=== PATIENT | male | born 1965 | race Caucasian/White ===

== ENCOUNTER 2017-09-22 02:49 | Emergency (ER) | payer OTHER ==
[2017-09-22 03:15] VITALS: BMI 17.9
--- NOTE | 2017-09-22 03:20 | PDOC ---
History of Present Illness - General History Source: Patient, Old Records Exam Limitations: No Limitations - History of Present Illness Initial Comments: 09/22/17 03:29 The patient is a 52 year old male with a past medical history of rectal cancer and small bowel obstruction who presents to the emergency department after nearly losing consciousness just prior to presenting. The patient states that at 12 pm yesterday he was at rest watching TV when he began to experience mid sternal chest discomfort radiating to his back and associated with dizziness and shortness of breath. He notes that he was recently diagnosed with an upper respiratory infection but he is unsure of the medications he was prescribed. He denies any sick contact or recent travels. He denies any current chest pain. Shortness of breath, dizziness, or other symptoms <Leobardo Padilla - Last Filed: 09/22/17 03:29> - General History Source: Patient <Kehinde Urrutia - Last Filed: 09/22/17 05:03> - General Chief Complaint: Chest Pain Stated Complaint: CHEST PAIN Time Seen by Provider: 09/22/17 03:04 Past History <Leobardo Padilla - Last Filed: 09/22/17 03:29> - Past Medical History Cancer: Yes (S/P Rectal CA) GI Disorders: Yes (SBO) - Surgical History Abdominal Surgery: Yes (Colon Resection; Chemo & Radiation) Appendectomy: Yes GI Surgery: Yes (S/P RECTAL CA) - Immunization History Immunization Up to Date: Yes - Suicide/Smoking/Psychosocial Hx Smoking History: Never smoked Have you smoked in the past 12 months: No Information on smoking cessation initiated: No Hx Alcohol Use: No Drug/Substance Use Hx: No Substance Use Type: None Hx Substance Use Treatment: No <Kehinde Urrutia - Last Filed: 09/22/17 05:03> - Past Medical History Allergies/Adverse Reactions: Allergies Allergy/AdvReac Type Severity Reaction Status Date / Time No Known Allergies Allergy Verified 09/22/17 03:13 Home Medications: Ambulatory Orders Omeprazole [Prilosec] 20 mg PO DAILY 02/18/16 Review of Systems - Review of Systems Able to Perform ROS?: Yes Comments:: CONSTITUTIONAL: (+) Dizziness Absent: fever, no chills, no fatigue EYES: Absent: visual changes ENT: Absent: ear pain, no sore throat CARDIOVASCULAR: (+) Chest discomfort Absent: chest pain, no palpitations RESPIRATORY: (+) SOB Absent: cough GI: Absent: abdominal pain, no nausea, no vomiting, no constipation, no diarrhea GENITOURINARY: Absent: dysuria, no frequency, no hematuria MUSCULOSKELETAL: Absent: back pain, no arthralgia, no myalgia SKIN: Absent: rash <Leobardo Padilla - Last Filed: 09/22/17 03:29> *Physical Exam - Vital Signs Last Vital Signs Temp Pulse Resp BP Pulse Ox 98.3 F 74 18 127/87 99 09/22/17 03:10 09/22/17 03:10 09/22/17 03:10 09/22/17 03:10 09/22/17 03:10 - Physical Exam Comments: GENERAL: Well-appearing, well-nourished. No apparent distress. HEENT: Normocephalic, atraumatic. PERRL, EOM intact. CARDIOVASCULAR: Normal S1, S2. Regular rate and rhythm. PULMONARY: Clear to auscultation bilaterally. ABDOMEN: Soft, non-distended, non-tender. EXTREMITIES: Normal ROM in all four extremities. No gross deformities. SKIN: Warm, dry. No rash NEUROLOGICAL: No focal neurological deficits. <Leobardo Padilla - Last Filed: 09/22/17 03:29> - Vital Signs Last Vital Signs Temp Pulse Resp BP Pulse Ox 98.3 F 74 18 127/87 99 09/22/17 03:10 09/22/17 03:10 09/22/17 03:10 09/22/17 03:10 09/22/17 03:10 <Kehinde Urrutia - Last Filed: 09/22/17 05:03> Heart Score/ECG Review - ECG Impressions Comment:: 09/22/17 03:30 ECG: Normal sinus rhythm Normal ECG <Leobardo Padilla - Last Filed: 09/22/17 03:29> ED Treatment Course - LABORATORY CBC & Chemistry Diagram: 09/22/17 03:33 09/22/17 03:35 <Kehinde Urrutia - Last Filed: 09/22/17 05:03> Medical Decision Making - Medical Decision Making 09/22/17 05:01 Dr. Urrutia: The scribe's documentation has been prepared under my direction and personally reviewed by me in its entirery. I confirm that the note above accurately reflects all work, treatment, procedures, and medical decision making performed by me. Pt feels better since he presented to the department. Pt labs, EKG, and chest xray are normal. Will discharge pt. <Kehinde Urrutia - Last Filed: 09/22/17 05:03> *DC/Admit/Observation/Transfer - Attestations Scribe Attestion: 09/22/17 03:30 Documentation prepared by Leobardo Padilla, acting as biomedical service engineer for Kehinde Urrutia DO. <Leobardo Padilla - Last Filed: 09/22/17 03:29> - Discharge Dispostion Admit: No <Kehinde Urrutia - Last Filed: 09/22/17 05:03> Diagnosis at time of Disposition: Chest pain - Discharge Dispostion Disposition: HOME Condition at time of disposition: Stable - Referrals Referrals: Ailyn Lyons MD [Staff Physician] - Da Gibbs MD [Staff Physician] - - Patient Instructions Printed Discharge Instructions: DI for Chest Pain Additional Instructions: Please follow up with the doctors provided to you here in the department Print Language: TURKISH
[2017-09-22 03:55] LABS: BASO % 0.6 % (0-2.0); EOS # 0.2 # (0-4.5); EOS % 4.8 % (0-4.5); MCH 29.6 pg (25.7-33.7); MCHC 33.6 g/dl (32.0-35.9); MEAN CELL VOLUME 88.1 fl (80-96); MEAN PLT VOLUME 8.1 fl (7.5-11.1); MONO # 0.4 # (3.8-10.2); NEUT # 2.5 # (42.8-82.8); NEUT % 59.7 % (42.8-82.8); PLATELET COUNT 189 K/MM3 (134-434); RDW 12.6 % (11.9-15.9); WHITE BLOOD COUNT 4.1 K/mm3 (4.0-10.0)
[2017-09-22 04:29] LABS: ALBUMIN 3.7 g/dl (3.4-5.0); ANION GAP 8 (8-16); BILIRUBIN,TOTAL 0.3 mg/dL (0.2-1.0); CALCIUM 8.5 mg/dL (8.5-10.1); CO2 27 mmol/L (21-32); CREATININE 0.8 mg/dL (0.7-1.3); GLUCOSE,RANDOM 122 mg/dL (74-106); MAGNESIUM 2.3 mg/dL (1.8-2.4); SGOT/AST 27 U/L (15-37); SGPT/ALT 47 U/L (12-78); TOT PROT 6.9 g/dl (6.4-8.2)
[2017-09-22 04:31] LABS: ALK PHOS 66 U/L (45-117); CPK 149 IU/L (39-308); TROPONIN I < 0.02 ng/ml (0.00-0.05)
[2017-09-22 05:15] VITALS: BP 127/86; PULSE 72; TEMP 98
--- NOTE | 2017-09-22 13:47 | EKG ---
Test Reason : Blood Pressure : / mmHG Vent. Rate : 076 BPM Atrial Rate : 076 BPM P-R Int : 148 ms QRS Dur : 092 ms QT Int : 380 ms P-R-T Axes : 067 036 033 degrees QTc Int : 427 ms POOR DATA QUALITY, INTERPRETATION MAY BE ADVERSELY AFFECTED NORMAL SINUS RHYTHM NORMAL ECG WHEN COMPARED WITH ECG OF 18-FEB-2016 07:42, NO SIGNIFICANT CHANGE WAS FOUND Confirmed by SEEMA MANDEL MD ([id number]) on 09/22/2017 1:47:25 PM Referred By: Confirmed By:SEEMA MANDEL MD
== END 2017-09-22 05:17 | disposition home or self-care (01) ==
LOC: JER 02:49 → SUPCPDRO 02:49 → JER 05:17
DX: R07.89 Other chest pain (principal); Z85.048 Personal history of other malignant neoplasm of rectum, rectosigmoid junction, and anus
CPT/HCPCS: 36415; 71010-TC; 80053; 82550; 83735; 84484; 85025; 93005; 93010; 99283-25

== ENCOUNTER 2018-03-16 21:26 | Emergency (ER) | payer OTHER ==
[2018-03-16] MEDS ORDERED: DIPHTH,PERTUSS(ACELL),TET 0.5 ML DISP.SYRIN IM ONE (21:30)
--- NOTE | 2018-03-16 21:30 | PDOC ---
Rapid Medical Evaluation Time Seen by Provider: 03/16/18 21:29 Medical Evaluation: Allergies Allergy/AdvReac Type Severity Reaction Status Date / Time No Known Allergies Allergy Verified 09/22/17 03:13 03/16/18 21:29 I have performed a brief in-person evaluation of this patient. The patient presents with a chief complaint of: right middle finger pain s/p cat bite Pertinent physical exam findings: erythema and swelling to right 3rd digit DIP I have ordered the following: td The patient will proceed to the ED for further evaluation. Discharge Disposition - Diagnosis Cat bite - Referrals - Patient Instructions - Post Discharge Activity
[2018-03-16 21:32] VITALS: BP 107/72; PULSE 69; TEMP 97.8; BMI 21.8
[2018-03-16] MEDS ORDERED: RABIES IMMUNE GLOBULIN 300 UNITS/2 ML VIAL IM ONE (21:51)
[2018-03-16] MEDS ORDERED: RABIES VACCINE (PCEC)/PF 2.5 UNIT/VIAL IM ONE (21:51)
--- NOTE | 2018-03-16 22:13 | PDOC ---
History of Present Illness - General Chief Complaint: Bite Stated Complaint: WOUND Time Seen by Provider: 03/16/18 21:29 History Source: Patient Exam Limitations: No Limitations - History of Present Illness Initial Comments: 03/16/18 22:09 This is a 53-year-old man without significant past medical history presents emergency departments with right middle finger pain and swelling starting this afternoon after being bitten by a stray cat. 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 He denies any fevers, chills, headaches, dizziness. Past History - Past Medical History Allergies/Adverse Reactions: Allergies Allergy/AdvReac Type Severity Reaction Status Date / Time No Known Allergies Allergy Verified 03/16/18 21:30 Home Medications: Ambulatory Orders Omeprazole [Prilosec] 20 mg PO DAILY 02/18/16 Amox-Tr/K Cl [Augmentin - 500Mg Tablet] 1 tab PO BID #14 tab 03/17/18 Cancer: Yes (S/P Rectal CA) COPD: No GI Disorders: Yes (SBO) - Surgical History Abdominal Surgery: Yes (Colon Resection; Chemo & Radiation) Appendectomy: Yes GI Surgery: Yes (S/P RECTAL CA) - Immunization History Immunization Up to Date: Yes - Suicide/Smoking/Psychosocial Hx Smoking History: Never smoked Have you smoked in the past 12 months: No Hx Alcohol Use: No Drug/Substance Use Hx: No Substance Use Type: None Hx Substance Use Treatment: No Review of Systems - Review of Systems Able to Perform ROS?: Yes Is the patient limited Albanian proficient: No Constitutional: No: Symptoms Reported HEENTM: No: Symptoms Reported Respiratory: No: Symptoms reported Cardiac (ROS): No: Symptoms Reported ABD/GI: No: Symptoms Reported : No: Symptoms Reported Musculoskeletal: No: Symptoms Reported Integumentary: Yes: See HPI Neurological: No: Symptoms reported *Physical Exam - Vital Signs Last Vital Signs Temp Pulse Resp BP Pulse Ox 97.8 F 69 18 107/72 98 03/16/18 21:30 03/16/18 21:30 03/16/18 21:30 03/16/18 21:30 03/16/18 21:30 - Physical Exam General Appearance: Yes: Appropriately Dressed. No: Apparent Distress Neck: positive: Trachea midline, Supple Respiratory/Chest: positive: Lungs Clear, Normal Breath Sounds. negative: Respiratory Distress, Accessory Muscle Use Cardiovascular: positive: Regular Rhythm, Regular Rate. negative: Murmur Gastrointestinal/Abdominal: positive: Normal Bowel Sounds, Soft. negative: Tender Integumentary: positive: Other (Swelling and erythema noted to the DIP of the right third finger.) Neurologic: positive: Alert, Normal Response Medical Decision Making - Medical Decision Making 03/16/18 22:11 A/P: 53-year-old male with infection to right proximal phalangeal joint of the third digit status post cat bite Erythema to DIP of the third digit of the right hand Full sensation noted distal to injury Full range of motion noted Given patient was bitten by a stray cat I will prophylactically treat the patient for rabies with a tetanus shot, rabies vaccine and rabies Ig. 03/17/18 01:06 Patient tolerated injections well. 1 mL of rabies Ig injected surrounding initial bite. Unable to infuse more given this was a bite to the finger. Remainder of rabies Ig was giving IM into separates injections to each gluteus. Rabies vaccine injected into the right vastus lateralis. Discharge instructions given and patient verbalized understanding of need for return for continued treatment with rabies vaccines. *DC/Admit/Observation/Transfer Diagnosis at time of Disposition: Cat bite Qualifiers: Encounter type: initial encounter Qualified Code(s): W55.01XA - Bitten by cat, initial encounter - Discharge Dispostion Disposition: HOME Condition at time of disposition: Stable - Prescriptions Prescriptions: Amox-Tr/K Cl [Augmentin - 500Mg Tablet] 1 tab PO BID #14 tab - Referrals Referrals: Niranjan Lynn MD [Primary Care Provider] - - Patient Instructions Additional Instructions: You have been given rabies immunoglobulin around the bites and also into the muscles. You've been given a rabies vaccine anterior muscle. You need to return in 3 days , 7 days and 14 days for additional doses of the rabies vaccine. You have been given a prescription for Augmentin. He was take one tablet twice a day for the next 1 week-even if you feel better. Return to emergency department for any fevers, chills, redness spreading up her finger, inability to move her finger or any other concerns. - Post Discharge Activity
--- NOTE | 2018-03-17 00:14 | PDOC ---
*Physical Exam - Vital Signs Last Vital Signs Temp Pulse Resp BP Pulse Ox 97.8 F 69 18 107/72 98 03/16/18 21:30 03/16/18 21:30 03/16/18 21:30 03/16/18 21:30 03/16/18 21:30 Medical Decision Making - Medical Decision Making 03/17/18 00:14 Mr Booker is a 53 yo M s/p cat bite by a stray cat Pt seen by Midlevel Provider under my direct supervision Abx Rabies Close follow up as wound is high risk for infection I agree with plan as outlined by Midlevel Provider 03/17/18 00:15 *DC/Admit/Observation/Transfer Diagnosis at time of Disposition: Cat bite - Referrals Referrals: Niranjan Lynn MD [Primary Care Provider] - - Patient Instructions - Post Discharge Activity
[2018-03-17] MEDS ORDERED: RABIES IMMUNE GLOBULIN 300 UNITS/2 ML VIAL ONE ×2 (00:21→00:32)
== END 2018-03-17 02:29 | disposition home or self-care (01) ==
LOC: JER 21:26 → JERFT 21:26 → JER 03-17 02:29
PROC: 3E0234Z Introduction of Serum, Toxoid and Vaccine into Muscle, Percutaneous Approach (ICD-10-PCS; principal; 2018-03-16)
PROC: 3E0234Z Introduction of Serum, Toxoid and Vaccine into Muscle, Percutaneous Approach (ICD-10-PCS; 2018-03-16)
PROC: 3E0234Z Introduction of Serum, Toxoid and Vaccine into Muscle, Percutaneous Approach (ICD-10-PCS; 2018-03-16)
DX: S60.472A Other superficial bite of right middle finger, initial encounter (principal); W55.01XA Bitten by cat, initial encounter; Y93.K9 Activity, other involving animal care; Y92.89 Other specified places as the place of occurrence of the external cause; Y99.8 Other external cause status
CPT/HCPCS: 90375; 90675; 90715; 99281-25

== ENCOUNTER 2018-03-28 14:10 | Emergency (ER) | payer OTHER ==
[2018-03-28 14:16] VITALS: BP 115/51; PULSE 59; TEMP 97.6; BMI 21.9
[2018-03-28] MEDS ORDERED: RABIES VACCINE (PCEC)/PF 2.5 UNIT/VIAL IM ONE (14:39)
--- NOTE | 2018-03-28 15:05 | PDOC ---
History of Present Illness - General Chief Complaint: Revisit,Rabies Injection Stated Complaint: RABIES INJECTION Time Seen by Provider: 03/28/18 14:19 History Source: Patient Exam Limitations: Language Barrier - History of Present Illness Initial Comments: 03/28/18 14:40 53 yr male here for rabies vaccine. Pt seen on March 17 for cat bite was given first treatment, pt did not return on schedule. Pt is here today. Past History - Past Medical History Allergies/Adverse Reactions: Allergies Allergy/AdvReac Type Severity Reaction Status Date / Time No Known Allergies Allergy Verified 03/28/18 14:13 Home Medications: Ambulatory Orders NK [No Known Home Medication] 03/28/18 Cancer: Yes (S/P Rectal CA) COPD: No GI Disorders: Yes (SBO) - Surgical History Abdominal Surgery: Yes (Colon Resection; Chemo & Radiation) Appendectomy: Yes GI Surgery: Yes (S/P RECTAL CA) - Immunization History Immunization Up to Date: Yes - Suicide/Smoking/Psychosocial Hx Smoking History: Never smoked Have you smoked in the past 12 months: No Information on smoking cessation initiated: No Hx Alcohol Use: No Drug/Substance Use Hx: No Substance Use Type: None Hx Substance Use Treatment: No Review of Systems - Review of Systems Able to Perform ROS?: Yes Is the patient limited Amharic proficient: No Constitutional: No: Symptoms Reported HEENTM: No: Symptoms Reported Respiratory: No: Symptoms reported Cardiac (ROS): No: Symptoms Reported ABD/GI: No: Symptoms Reported : No: Symptoms Reported Musculoskeletal: No: Symptoms Reported Integumentary: No: Symptoms Reported *Physical Exam - Vital Signs Last Vital Signs Temp Pulse Resp BP Pulse Ox 97.6 F 59 L 16 115/51 100 03/28/18 14:14 03/28/18 14:14 03/28/18 14:14 03/28/18 14:14 03/28/18 14:14 - Physical Exam General Appearance: Yes: Nourished, Appropriately Dressed HEENT: positive: EOMI, ENA Musculoskeletal: positive: Normal Inspection Extremity: positive: Normal Capillary Refill, Normal Inspection, Normal Range of Motion, Other (well healed cat bite ) Integumentary: positive: Normal Color, Dry, Warm Neurologic: positive: Fully Oriented, Alert, Normal Mood/Affect, Normal Response , Motor Strength 5/5 Medical Decision Making - Medical Decision Making 03/28/18 14:43 cc: here for rabies vaccine cat bite on March 16 seen in ER was given rabies vaccine and immune globulin. pt here for rabies vaccine, did not show up for the past two vaccines scheduled for March 19. There is no record of the bite or forms filled out in the rabies log. I have reviewed the EMR. called DO and discussed the case, they have no record of the rabies forms per protocol [facility] pt is to get rabies vaccine today as day 3 and follow the schedule for day 7, day 14. 03/28/18 15:08 03/28/18 15:12 *DC/Admit/Observation/Transfer Diagnosis at time of Disposition: Rabies, need for prophylactic vaccination against - Discharge Dispostion Disposition: HOME Condition at time of disposition: Good - Referrals Referrals: Niranjan Lynn MD [Primary Care Provider] - - Patient Instructions Printed Discharge Instructions: DI for Rabies Vaccine Print Language: PERSIAN - Post Discharge Activity Forms/Work/School Notes: Rabies Vaccination F/U [facility].
== END 2018-03-28 15:27 | disposition home or self-care (01) ==
LOC: JERFT 14:10
PROC: 3E0234Z Introduction of Serum, Toxoid and Vaccine into Muscle, Percutaneous Approach (ICD-10-PCS; principal; 2018-03-28)
DX: Z20.3 Contact with and (suspected) exposure to rabies (principal); Z23 Encounter for immunization
CPT/HCPCS: 90675; 99281-25

== ENCOUNTER 2018-04-18 15:12 | Emergency (ER) | payer OTHER ==
--- NOTE | 2018-04-18 15:24 | PDOC ---
Rapid Medical Evaluation Time Seen by Provider: 04/18/18 15:23 Medical Evaluation: Allergies Allergy/AdvReac Type Severity Reaction Status Date / Time No Known Allergies Allergy Verified 04/11/18 15:53 I have performed a brief in-person evaluation of this patient. The patient presents with a chief complaint of: here for rabies shot Pertinent physical exam findings: none I have ordered the following: nothing The patient will proceed to the ED for further evaluation. Discharge Disposition - Diagnosis Rabies, need for prophylactic vaccination against - Referrals - Patient Instructions - Post Discharge Activity
[2018-04-18 15:27] VITALS: BP 104/52; PULSE 65; TEMP 98.7; BMI 22.1
[2018-04-18] MEDS ORDERED: RABIES VACCINE (PCEC)/PF 2.5 UNIT/VIAL IM ONE (15:30)
--- NOTE | 2018-04-18 15:33 | PDOC ---
History of Present Illness - General Chief Complaint: Revisit,Rabies Injection Stated Complaint: REVISIT/ RABIES INJECTION Time Seen by Provider: 04/18/18 15:23 - History of Present Illness Initial Comments: Patient presents for his last rabies inoculation 04/18/18 15:31 Past History - Past Medical History Allergies/Adverse Reactions: Allergies Allergy/AdvReac Type Severity Reaction Status Date / Time No Known Allergies Allergy Verified 04/18/18 15:24 Home Medications: Ambulatory Orders NK [No Known Home Medication] 03/28/18 Cancer: Yes (S/P Rectal CA) COPD: No GI Disorders: Yes (SBO) - Surgical History Abdominal Surgery: Yes (Colon Resection; Chemo & Radiation) Appendectomy: Yes GI Surgery: Yes (S/P RECTAL CA) - Immunization History Immunization Up to Date: Yes - Suicide/Smoking/Psychosocial Hx Smoking History: Never smoked Have you smoked in the past 12 months: No Information on smoking cessation initiated: No Hx Alcohol Use: No Drug/Substance Use Hx: No Substance Use Type: None Hx Substance Use Treatment: No Review of Systems - Review of Systems All Other Systems: Reviewed and Negative *Physical Exam - Vital Signs Last Vital Signs Temp Pulse Resp BP Pulse Ox 98.7 F 65 18 104/52 100 04/18/18 15:24 04/18/18 15:24 04/18/18 15:24 04/18/18 15:24 04/18/18 15:24 - Physical Exam Comments: GENERAL: The patient is awake, alert, and fully oriented, in no acute distress. HEAD: Normal with no signs of trauma. EYES: sclera anicteric, conjunctiva clear. EXTREMITIES: Normal range of motion, no edema. No clubbing or cyanosis. No cords, erythema, or tenderness. NEUROLOGICAL: Cranial nerves II through XII grossly intact. Normal speech, normal gait. PSYCH: Normal mood, normal affect. SKIN: Warm, Dry, normal turgor, no rashes or lesions noted. 04/18/18 15:32 *DC/Admit/Observation/Transfer Diagnosis at time of Disposition: Rabies, need for prophylactic vaccination against - Discharge Dispostion Disposition: HOME Condition at time of disposition: Stable Decision to Admit order: No - Referrals - Patient Instructions Printed Discharge Instructions: DI for Rabies Vaccine Additional Instructions: Return to the emergency room should your spirits any fever chills or night sweats otherwise follow-up with your primary care physician one to 2 days. Your rabies vaccination schedule is now complete. - Post Discharge Activity
== END 2018-04-18 16:06 | disposition home or self-care (01) ==
LOC: JERFT 15:12
PROC: 3E0234Z Introduction of Serum, Toxoid and Vaccine into Muscle, Percutaneous Approach (ICD-10-PCS; principal; 2018-04-18)
DX: Z20.3 Contact with and (suspected) exposure to rabies (principal); W55.03XD Scratched by cat, subsequent encounter
CPT/HCPCS: 90675; 99281-25

== ENCOUNTER 2018-08-01 12:54 | Emergency (ER) | payer OTHER ==
[2018-08-01 12:56] VITALS: BP 122/66; PULSE 72; BMI 23.0
--- NOTE | 2018-08-01 13:21 | PDOC ---
History of Present Illness - General Chief Complaint: Laceration Stated Complaint: LACERATION Time Seen by Provider: 08/01/18 13:15 History Source: Patient Exam Limitations: Clinical Condition - History of Present Illness Initial Comments: 08/01/18 13:15 Patient with no sig Past medical history present with complain of laceration to back of right hand from a glass while working today. Patient reported he was lifting a heavy glass slipped and cut his back of his hand. Patient last tetanus vaccine was 3 months ago. Patient denies numbness or tingling sensation to hand. Timing/Duration: 1 hour Past History - Past Medical History Allergies/Adverse Reactions: Allergies Allergy/AdvReac Type Severity Reaction Status Date / Time No Known Allergies Allergy Verified 08/01/18 12:55 Home Medications: Ambulatory Orders Cephalexin Monohydrate [Keflex -] 500 mg PO BID 7 Days #14 capsule 08/01/18 Cancer: Yes (S/P Rectal CA) COPD: No GI Disorders: Yes (SBO) - Surgical History Abdominal Surgery: Yes (Colon Resection; Chemo & Radiation) Appendectomy: Yes GI Surgery: Yes (S/P RECTAL CA) - Immunization History Immunization Up to Date: Yes - Suicide/Smoking/Psychosocial Hx Smoking History: Never smoked Have you smoked in the past 12 months: No Hx Alcohol Use: No Drug/Substance Use Hx: No Substance Use Type: None Hx Substance Use Treatment: No Review of Systems - Review of Systems Able to Perform ROS?: Yes Is the patient limited St [place]ian proficient: No Constitutional: No: Weakness Respiratory: No: Symptoms reported Cardiac (ROS): No: Symptoms Reported ABD/GI: No: Symptoms Reported Musculoskeletal: Yes: Muscle Pain (back of hand over laceration area), Other ( lacerations to dorsal aspect of 2-4th fingers of right hand) All Other Systems: Reviewed and Negative *Physical Exam - Vital Signs Last Vital Signs Temp Pulse Resp BP Pulse Ox 72 18 122/66 08/01/18 12:55 08/01/18 12:55 08/01/18 12:55 - Physical Exam Comments: 08/01/18 13:18 GENERAL: Well developed, well nourished. Awake and alert. No acute distress. CARDIOVASCULAR: Regular rate and rhythm. No murmurs, rubs, or gallops. PULMONARY: No evidence of respiratory distress. Lungs clear to auscultation bilaterally. No wheezing, rales or rhonchi. ABDOMINAL: Soft. Non-tender. Non-distended. No rebound or guarding. No organomegaly. Normoactive bowel sounds MUSCULOSKELETAL : 3 superficial linear lacerations to posterior hands of second , third and fourth digits of right hand with minimal bleeding. 2cm laceration to proximal phalange of right index finger. another 2cm laceration to dorsal of 3rd right finger. another 1 cm laceration to middle phalange of 4th right finger NEUROLOGICAL: Alert, awake, appropriate. No motor deficits in the lower extremities. Gait is normal without ataxia. PSYCHIATRIC: Cooperative. Good eye contact. Appropriate mood and affect. 08/01/18 13:20 General Appearance: Yes: Nourished, Appropriately Dressed. No: Apparent Distress Procedures - Laceration/Wound Repair Right Posterior Proximal Finger 2nd digit Wound Length: to 2.5 cm Wound Explored: clean, no foreign body present Wound's Depth, Shape: superficial, linear Irrigated w/ Saline: Yes Betadine Prep: Yes Anesthesia: 1% Lidocaine Amount of Anesthetic (ccs): 1 Wound Repaired With: Steri-strips, Dermabond Sterile Dressing Applied: Yes Splint Applied: No Sling Applied: No Right Posterior Proximal Finger 3rd digit Wound Length: 2.6 to 5.0 cm (3cm) Wound Explored: clean Wound's Depth, Shape: superficial, linear Irrigated w/ Saline: Yes Betadine Prep: Yes Anesthesia: 1% Lidocaine Amount of Anesthetic (ccs): 1 Wound Repaired With: Sutures Suture Size/Type: 4:0, nylon Number of Sutures: 3 Layer Closure: No Sterile Dressing Applied: Yes Splint Applied: No Sling Applied: No Right Posterior Proximal Finger 4th digit Wound Length: to 2.5 cm (2cm) Wound Explored: clean, no foreign body present Wound's Depth, Shape: superficial, linear Irrigated w/ Saline: Yes Betadine Prep: Yes Anesthesia: 1% Lidocaine Amount of Anesthetic (ccs): 1 Wound Repaired With: Sutures, Dermabond Suture Size/Type: 4:0, nylon Number of Sutures: 2 Layer Closure: No Sterile Dressing Applied: Yes Splint Applied: No Sling Applied: No Medical Decision Making - Medical Decision Making 08/01/18 13:19 Patient with no significant past medical history presenting with laceration to second and third and fourth digits of right hand from glass an hour ago. Patient up-to-date on tetanus vaccine. 08/01/18 13:43 2 cm laceration to right middle phalange of index finger closed with dermabond.3 cm laceration to dorsal aspect of right third finger closed with 3 interrupted sutures.2 cm laceration to dorsal aspect of right fourth finger closed with 2 interrupted sutures. Patient tolerated procedure well. Patient stable for discharge on Keflex and follow-up in one week for suture removal. *DC/Admit/Observation/Transfer Diagnosis at time of Disposition: Laceration of multiple sites of right hand and fingers Qualifiers: Encounter type: initial encounter Qualified Code(s): S61.411A - Laceration without foreign body of right hand, initial encounter - Discharge Dispostion Disposition: HOME Condition at time of disposition: Stable Decision to Admit order: No - Prescriptions Prescriptions: Cephalexin Monohydrate [Keflex -] 500 mg PO BID 7 Days #14 capsule - Referrals Referrals: Niranjan Lynn MD [Primary Care Provider] - - Patient Instructions Printed Discharge Instructions: DI for Laceration Repair Additional Instructions: Apply Neosporin cream to wound twice a day. Take Motrin as needed for pain. Take prescribed antibiotics and finish it. Come back in one week for suture removal - Post Discharge Activity
== END 2018-08-01 13:48 | disposition home or self-care (01) ==
LOC: JERFT 12:54
PROC: 0HQFXZZ Repair Right Hand Skin, External Approach (ICD-10-PCS; principal; 2018-08-01)
DX: S61.411A Laceration without foreign body of right hand, initial encounter (principal); W25.XXXA Contact with sharp glass, initial encounter; Y93.89 Activity, other specified; Y92.89 Other specified places as the place of occurrence of the external cause; Z85.038 Personal history of other malignant neoplasm of large intestine
CPT/HCPCS: 99282-25

== ENCOUNTER 2018-08-07 14:20 | Emergency (ER) | payer OTHER ==
[2018-08-07 14:32] VITALS: BP 107/70; PULSE 68; TEMP 98.4; BMI 22.1
--- NOTE | 2018-08-07 15:03 | PDOC ---
History of Present Illness - General Chief Complaint: Suture/Staple Removal(Here) Stated Complaint: SUTURE REMOVAL Time Seen by Provider: 08/07/18 14:49 - History of Present Illness Initial Comments: 08/07/18 15:01 53-year-old male presents for reevaluation suture removal of sutures on his right hand I will place 7 days ago. 08/07/18 15:01 besides localized pain, he has had no issues Past History - Past Medical History Allergies/Adverse Reactions: Allergies Allergy/AdvReac Type Severity Reaction Status Date / Time No Known Allergies Allergy Verified 08/07/18 14:32 Home Medications: Ambulatory Orders NK [No Known Home Medication] 08/07/18 Cancer: Yes (S/P Rectal CA) COPD: No GI Disorders: Yes (SBO) - Surgical History Abdominal Surgery: Yes (Colon Resection; Chemo & Radiation) Appendectomy: Yes GI Surgery: Yes (S/P RECTAL CA) - Immunization History Immunization Up to Date: Yes - Suicide/Smoking/Psychosocial Hx Smoking History: Never smoked Have you smoked in the past 12 months: No Hx Alcohol Use: No Drug/Substance Use Hx: No Substance Use Type: None Hx Substance Use Treatment: No Review of Systems - Review of Systems Integumentary: Yes: See HPI *Physical Exam - Vital Signs Last Vital Signs Temp Pulse Resp BP Pulse Ox 98.4 F 68 18 107/70 98 08/07/18 14:29 08/07/18 14:29 08/07/18 14:29 08/07/18 14:29 08/07/18 14:29 - Physical Exam Comments: 08/07/18 15:01 Dermabond covering the sutures over the second and third MCP joints Dermabond was removed sutures were pulled out along with the Dermabond the skin edges were macerated and held together with Steri-Strips Medical Decision Making - Medical Decision Making 08/07/18 15:02 This was obviously an early suture removal however needed to be done secondary to the Dermabond [place] macerated skin to meet the wounds. There is no indication of infection. I've applied Steri-Strips and instruct the patient to wash his hands with soap and water and follow-up with hand surgery for further evaluation and treatment options. *DC/Admit/Observation/Transfer Diagnosis at time of Disposition: Visit for suture removal - Discharge Dispostion Disposition: HOME Condition at time of disposition: Stable Decision to Admit order: No - Referrals Referrals: Niranjan Lynn MD [Primary Care Provider] - Nick Espinoza MD [Staff Physician] - - Patient Instructions Printed Discharge Instructions: DI for Suture Removal Additional Instructions: Return to the emergency room should her wounds open or if there is any drainage redness or swelling to the area or increasing pain. Follow-up with hand surgery for further evaluation and treatment options. Keep the area clean and dry with soap and water and left open to air. Do not return to work until the wounds are healed and cleared by hand surgery at least another 5-7 days. - Post Discharge Activity Forms/Work/School Notes: Back to Work
== END 2018-08-07 15:11 | disposition home or self-care (01) ==
LOC: JERFT 14:20
DX: Z48.817 Encounter for surgical aftercare following surgery on the skin and subcutaneous tissue (principal); Z48.02 Encounter for removal of sutures
CPT/HCPCS: 99281-25

== ENCOUNTER 2019-10-27 17:51 | Emergency (ER) | payer OTHER ==
[2019-10-27 18:00] VITALS: TEMP 97.9; BMI 21.9
--- NOTE | 2019-10-27 18:33 | PDOC ---
Documentation entered by Melissa Alcaraz SCRIBE, acting as scribe for Cathie Calderon MD. Cathie Calderon MD: This documentation has been prepared by the jpibe, Melissa Alcaraz SCRIBE, under my direction and personally reviewed by me in its entirety. I confirm that the documentation accurately reflects all work, treatment, procedures, and medical decision making performed by me. Attending Attestation - Resident Resident Name: Beni Fuentes - ED Attending Attestation I have performed the following: I have examined & evaluated the patient, The case was reviewed & discussed with the resident, I agree w/resident's findings & plan, Exceptions are as noted - HPI HPI: 10/27/19 18:32 54-year-old male presents with bloody bowel movements 10/27/19 20:07 The patient is a 54-year-old male with a past medical history significant for Rectal CA s/p resection (2003) and SBO (2014), who presents to the emergency department with bright red blood per rectum. The patient reports he had some bread and coffee, then went to [employer]azidism. At yazidism, the patient had an onset of lower abdominal pain. The patient reports he went to the bathroom and had an episode of hematochezia. The patient reports since then, he has had a couple of episodes of bright red blood bowel movement and reports associated symptoms of weakness. Denies chest pain, palpitations, shortness of breath. - Physicial Exam PE: 10/27/19 22:10 GENERAL: Well-appearing, well-nourished. No apparent distress. HEENT: Normocephalic, atraumatic. PERRL, EOM intact. CARDIOVASCULAR: Regular rate and rhythm. PULMONARY: Clear to auscultation bilaterally. ABDOMEN: +lower abdominal pain, right lower and left lower abdominal pain to deep palpation, no guarding. Well healed surgical scar on the abdomen. EXTREMITIES: Normal ROM in all four extremities. SKIN: Warm, dry. No rash NEUROLOGICAL: No focal neurological deficits. - Medical Decision Making 10/27/19 20:24 54-year-old male presents after having 5 bloody stools today Past medical history significant for rectal cancer status post resection chemo and radiation, small bowel obstruction 2015 Patient denies any shortness of breath or chest pain 10/27/19 20:24 10/27/19 20:40 Labs are reviewed and CBC and chemistries are unremarkable with exception of glucose equal to 125 CT abdomen pelvis rule out diverticulitis 10/27/19 22:10 No elevated white count, no fever, CAT scan consistent with some mild colitis Patient placed on antibiotics and will follow-up with his GI doctor at [facility]
[2019-10-27 19:06] LABS: BASO % 0.4 % (0-2.0); EOS % 0.9 % (0-4.5); HEMATOCRIT 44.5 % (35.4-49); HEMOGLOBIN 14.8 GM/dL (11.7-16.9); LYMPH % 21.9 % (8-40); MCHC 33.4 g/dl (32.0-35.9); MONO % 5.8 % (3.8-10.2); PLATELET COUNT 217 K/MM3 (134-434); RBC 4.94 M/mm3 (4.00-5.60); RDW 12.5 % (11.9-15.9); WHITE BLOOD COUNT 7.1 K/mm3 (4.0-10.0)
--- NOTE | 2019-10-27 19:31 | PDOC ---
History of Present Illness - General Chief Complaint: Rectal Bleed Stated Complaint: RECTAL BLEEDING Time Seen by Provider: 10/27/19 18:31 History Source: Patient Exam Limitations: No Limitations - History of Present Illness Initial Comments: 10/27/19 19:15 Girma Booker is a 54M with PMH rectal cancer in 2004 s/p rectal resection/chemo /radiation/no ostomy, SBO in 2011, GERD, presents with 5x bloody stools with abdominal pain. Patient reports 16 years ago he was diagnosed with rectal cancer, no HIV/HPV, has rectal resection/chemo/rads, has been in remission. Since then has had intermittent bouts of colon motility and difficulty having BM, but self-resolve , no significant bleeding. Today went to caodaism, had some bread and coffee, had strong squeezing lower abdominal pain, went to have BM, had painless blood per rectum. 5x episodes of this throughout the day. 2x vomiting while having BM. Says he feels weaker but denies SOB, chest pain, palpitations. No urinary sx. Not on any AC, no history of cardiac disease. Last colonoscopy [address] Anguiano, 1 poylp removed[address]D at [facility]. PSH also includes appendectomy. No spoiled food. No sick contacts. No recent travel. Past History - Past Medical History Allergies/Adverse Reactions: Allergies Allergy/AdvReac Type Severity Reaction Status Date / Time No Known Allergies Allergy Verified 10/27/19 17:55 Home Medications: Ambulatory Orders Ciprofloxacin [Cipro -] 500 mg PO Q12H 7 Days #14 tablet 10/27/19 Omeprazole 20 mg PO DAILY 10/27/19 metroNIDAZOLE [Flagyl -] 500 mg PO TID 7 Days #21 tablet 10/27/19 Cancer: Yes (S/P Rectal CA) COPD: No GI Disorders: Yes (SBO) - Surgical History Abdominal Surgery: Yes (Colon Resection; Chemo & Radiation) Appendectomy: Yes GI Surgery: Yes (S/P RECTAL CA) - Immunization History Immunization Up to Date: Yes - Psycho Social/Smoking Cessation Hx Smoking History: Never smoked Have you smoked in the past 12 months: No Hx Alcohol Use: No Drug/Substance Use Hx: No Substance Use Type: None Hx Substance Use Treatment: No Review of Systems - Review of Systems Able to Perform ROS?: Yes Constitutional: No: Chills, Fever HEENTM: No: Symptoms Reported Respiratory: No: Cough, Shortness of Breath Cardiac (ROS): No: Chest Pain, Irregular Heart Rate, Lightheadedness, Palpitations, Syncope ABD/GI: Yes: Diarrhea, Nausea, Rectal Bleeding, Vomiting. No: Poor Appetite, Poor Fluid Intake : No: Symptoms Reported Musculoskeletal: No: Symptoms Reported Integumentary: No: Symptoms Reported Neurological: Yes: Dizziness. No: Headache, Numbness, Paresthesia Endocrine: No: Symptoms Reported Hematologic/Lymphatic: No: Symptoms Reported All Other Systems: Reviewed and Negative *Physical Exam - Vital Signs Last Vital Signs Temp Pulse Resp BP Pulse Ox 97.9 F 77 18 105/63 99 10/27/19 17:55 10/27/19 17:55 10/27/19 17:55 10/27/19 17:55 10/27/19 17:55 - Physical Exam General Appearance: Yes: Nourished, Appropriately Dressed. No: Apparent Distress HEENT: positive: EOMI, ENA, Normal Voice, Pharynx Normal. negative: Scleral Icterus (R), Scleral Icterus (L) Neck: positive: Trachea midline, Normal Thyroid, Supple. negative: Tender, Lymphadenopathy (R), Lymphadenopathy (L) Respiratory/Chest: positive: Lungs Clear, Normal Breath Sounds. negative: Chest Tender, Respiratory Distress, Accessory Muscle Use, Crackles, Rales, Rhonchi, Stridor, Wheezing Cardiovascular: positive: Regular Rhythm, Regular Rate. negative: Murmur Gastrointestinal/Abdominal: positive: Normal Bowel Sounds, Tender (bilateral lowers), Flat, Soft. negative: Organomegaly, Pulsatile Mass, Guarding, Rebound , Hernia, Hepatomegaly Rectal Exam: positive: normal rectal tone, heme positive stool (trace). negative: hemorrhoids Musculoskeletal: positive: Normal Inspection. negative: CVA Tenderness, Decreased Range of Motion Extremity: positive: Normal Capillary Refill, Normal Inspection, Normal Range of Motion, Pelvis Stable. negative: Tender Integumentary: positive: Normal Color, Dry, Warm. negative: Diaphoresis Neurologic: positive: advertising consultant II-XII NML intact, Fully Oriented, Alert, Normal Mood/ Affect, Normal Response, Motor Strength 5/5, Finger to Nose (normal). negative : Numbness, Sensory Deficit ED Treatment Course - LABORATORY CBC & Chemistry Diagram: 10/27/19 18:30 10/27/19 18:30 - ADDITIONAL ORDERS Additional order review: 10/27/19 18:30 RBC 4.94 MCV 90.0 MCHC 33.4 RDW 12.5 MPV 8.0 Neutrophils % 71.0 Lymphocytes % 21.9 Monocytes % 5.8 Eosinophils % 0.9 D Basophils % 0.4 - RADIOLOGY Radiology Studies Ordered: Category Date Time Status ABDOMEN & PELVIS CT WITH CONTR [CT] Stat CT Scan 10/27/19 19:06 Ordered Medical Decision Making - Medical Decision Making 10/27/19 19:56 Patient has known history of rectal cancer with resection without ostomy, now presenting with abdominal pain and BRBPR x5. Presentation is concerning for fistula, diverticulitis/osis, internal hemorrhoids, polylp bleeding, AVM. VS stable, patient in no acute distress, no tachycardia, no pressing signs of high volume blood loss. - CBC/CMP for infection/lytes eval - TS for blood loss - FOBT for eval rectal bleed - Coags for eval coagulopathy - CT AP with contrast for eval abdomen pain - ECG for eval arrthymia - 1L NS - 4mg morphine for pain 10/27/19 20:03 ECG shows NSR with HR 67, QRS 94, QTc 420, no ischemic changes or TWI, PWI in V1 -V2 consistent with priors Labs notable for: - CBC WNL, Cr 0.8 stable for IVC - CMP WNL - INR 1.31, slightly high, not on AC, transaminanses WNL - FOBT trace 10/27/19 21:54 CT scan shows descending colon mucosal thickening, colitis cannot be excluded. Will cover for infectious colitis with cipro/flagyl, giving one dose in ED. Hgb stable. Stable to be discharged home with GI f/u. Discharge - Discharge Information Problems reviewed: Yes Clinical Impression/Diagnosis: Rectal bleeding Condition: Stable Disposition: HOME - Admission No - Additional Discharge Information Prescriptions: Ciprofloxacin [Cipro -] 500 mg PO Q12H 7 Days #14 tablet metroNIDAZOLE [Flagyl -] 500 mg PO TID 7 Days #21 tablet - Follow up/Referral Referrals: Niranjan Lynn MD [Primary Care Provider] - Tim Urena MD [Staff Physician] - - Patient Discharge Instructions Patient Printed Discharge Instructions: DI for Rectal Bleeding Additional Instructions: Today you were evaluated for bloody stools. Your blood labs do not show any significant blood loss. Your CT scan shows some changes in your intestines that are concerning for an infection in your intestines. We are sending you home with antibiotics to help treat this. You need to follow-up with a process design engineer for further evaluation, and we ahve given you a referral to see one. Please follow-up with your primary doctor in the next 3 days for further care as well. If you experience worsening bleeding, chest pain, palpitation, trouble breathing, or any other new or concerning symptoms, please return to the emergency room. - Post Discharge Activity Work/Back to School Note: Back to Work
[2019-10-27 19:35] LABS: INR 1.31 (0.83-1.09); PROTHROMBIN TIME (PATIENT) 15.5 SEC (9.7-13.0)
[2019-10-27 19:36] LABS: BILIRUBIN,TOTAL 0.4 mg/dL (0.2-1); BLOOD UREA NITROGEN 16.4 mg/dL (7-18); CALCIUM 8.9 mg/dL (8.5-10.1); CREATININE 0.8 mg/dL (0.55-1.3); POTASSIUM 4.3 mmol/L (3.5-5.1); TOT PROT 7.5 g/dl (6.4-8.2)
[2019-10-27 19:37] LABS: ACTIVATED PTT 29.2 SECONDS (25.2-36.5)
[2019-10-27] MEDS ORDERED: morphine CARPU-JECT 4 MG/1 ML DISP.SYRIN IVPUSH ONE (19:40)
[2019-10-27] MEDS ORDERED: morphine SULFATE 4 MG/ML VIAL ONE (19:41)
[2019-10-27 19:47] VITALS: BP 127/77; PULSE 74
[2019-10-27] MEDS ORDERED: SODIUM CHLORIDE 0.9% 500 ML INFUS.BAG IV ONE (19:48)
[2019-10-27 21:32] LABS: RETICULOCYTES 0.92 % (0.5-1.5)
[2019-10-27] MEDS ORDERED: CIPROFLOXACIN 500 MG TABLET (RESTRICTED TO ID) PO ONE (22:17)
[2019-10-27] MEDS ORDERED: metroNIDAZOLE 500 MG TABLET PO ONE (22:17)
[2019-10-27] MEDS ORDERED: metroNIDAZOLE 250 MG TABLET ONE (22:21)
--- NOTE | 2019-10-28 13:58 | EKG ---
Test Reason : Blood Pressure : / mmHG Vent. Rate : 067 BPM Atrial Rate : 067 BPM P-R Int : 152 ms QRS Dur : 094 ms QT Int : 398 ms P-R-T Axes : 066 047 036 degrees QTc Int : 420 ms NORMAL SINUS RHYTHM POSSIBLE LEFT ATRIAL ENLARGEMENT BORDERLINE ECG WHEN COMPARED WITH ECG OF 22-SEP-2017 02:50, NO SIGNIFICANT CHANGE WAS FOUND Confirmed by Petrona Kendall ([id number]) on 10/28/2019 1:58:29 PM Referred By: Confirmed By:Petrona Kendall
== END 2019-10-27 22:49 | disposition home or self-care (01) ==
LOC: SUPCPDRO 17:51 → JER 17:51
DX: K62.5 Hemorrhage of anus and rectum (principal); K52.9 Noninfective gastroenteritis and colitis, unspecified; Z85.048 Personal history of other malignant neoplasm of rectum, rectosigmoid junction, and anus; Z87.19 Personal history of other diseases of the digestive system; Z90.49 Acquired absence of other specified parts of digestive tract
CPT/HCPCS: 36415; 74177-TC; 80053; 82272; 85025; 85044; 85610; 85730; 86850; 86900; 86901; 93005; 93010; 99284-25; Q9967

== ENCOUNTER 2019-11-08 16:30 | Emergency (ER) | payer OTHER ==
--- NOTE | 2019-11-08 16:37 | PDOC ---
Rapid Medical Evaluation Chief Complaint: Chest Pain Time Seen by Provider: 11/08/19 16:31 Medical Evaluation: Allergies Allergy/AdvReac Type Severity Reaction Status Date / Time No Known Allergies Allergy Verified 10/27/19 17:55 11/08/19 16:32 54 year old male c/o dizziness, chest discomfort and weakness. patient reports that he had a colonoscopy. patient PE: patient pale tachycardic 130 s. HR decreased 90s while in triage A: chest pain P: labs EKG Discharge Disposition - Diagnosis Chest pain Qualifiers: Chest pain type: unspecified Qualified Code(s): R07.9 - Chest pain, unspecified - Referrals - Patient Instructions - Post Discharge Activity
[2019-11-08 16:49] VITALS: BP 136/78; PULSE 94; TEMP 98; BMI 24.4
[2019-11-08 17:17] LABS: BASO % 0.7 % (0-2.0); EOS % 7.7 % (0-4.5); HEMATOCRIT 43.5 % (35.4-49); HEMOGLOBIN 14.6 GM/dL (11.7-16.9); LYMPH % 54.1 % (8-40); MCH 30.1 pg (25.7-33.7); MCHC 33.5 g/dl (32.0-35.9); MEAN CELL VOLUME 89.8 fl (80-96); MEAN PLT VOLUME 8.1 fl (7.5-11.1); NEUT % 25.5 % (42.8-82.8); PLATELET COUNT 207 K/MM3 (134-434); RBC 4.84 M/mm3 (4.00-5.60); RDW 12.8 % (11.9-15.9); WHITE BLOOD COUNT 4.2 K/mm3 (4.0-10.0)
--- NOTE | 2019-11-08 17:20 | PDOC ---
*Physical Exam - Vital Signs Last Vital Signs Temp Pulse Resp BP Pulse Ox 98.0 F 94 H 22 H 136/78 100 11/08/19 16:31 11/08/19 16:31 11/08/19 16:31 11/08/19 16:31 11/08/19 16:31 ED Treatment Course - LABORATORY CBC & Chemistry Diagram: 11/08/19 16:44 11/08/19 16:44 Medical Decision Making - Medical Decision Making 11/08/19 17:20 Patient seen by the advanced practice provider under my direct supervision. Ancillary testing reviewed as necessary. I agree with plan as outlined by the advanced practice provider. Discharge - Discharge Information Problems reviewed: Yes Clinical Impression/Diagnosis: Chest pain Qualifiers: Chest pain type: unspecified Qualified Code(s): R07.9 - Chest pain, unspecified Condition: Stable Disposition: HOME - Follow up/Referral Referrals: Niranjan Lynn MD [Primary Care Provider] - - Patient Discharge Instructions Patient Printed Discharge Instructions: DI for Atypical Chest Pain Additional Instructions: Your CT, EKG, chest x-ray and laboratory testing today was unremarkable. It is important that you follow-up with your primary doctor as well as your GI specialist who did the colonoscopy today. Return to emergency department for any new or worsening symptoms. Thank you very much for choosing us to provide your emergent healthcare needs. - Post Discharge Activity
--- NOTE | 2019-11-08 17:47 | PDOC ---
History of Present Illness - General Chief Complaint: Chest Pain Stated Complaint: CHEST PAIN Time Seen by Provider: 11/08/19 16:31 History Source: Patient, Old Records Exam Limitations: No Limitations - History of Present Illness Initial Comments: 11/08/19 17:49 HISTORY OF PRESENT ILLNESS: 54-year-old male past medical history of rectal CA status post resection, chemo and radiation, SBO 2012, GERD, appendectomy presents emergency department today for evaluation of brief episode of dizziness lasting approximately 20 minutes nightly prior to presentation to the emergency department. Patient had colonoscopy earlier today reports has not had full meal in approximately 2 days. Patient reports having some casava cake when he returned home from his colonoscopy today and then took a nap. He reported while he was sleeping he began to feel slightly short of breath with an uneasy feeling in his chest and had some dizziness which awoke him from sleep. He denies any headache or neurosensory deficits. He currently denies any chest pain or shortness of breath. Denies nausea, vomiting or abdominal pain. No recent travel or sick contacts. PAST MEDICAL HISTORY: See HPI SURGICAL HISTORY: See HPI ALLERGIES: No known drug allergies REVIEW OF SYSTEMS General/Constitutional: Denies fever or chills. Denies weakness, weight change. HEENT: Denies change in vision. Denies ear pain or discharge. Denies sore throat. Cardiovascular: Denies chest pain or shortness of breath. Respiratory: Denies cough, wheezing, or hemoptysis. Gastrointestinal: Denies nausea, vomiting, diarrhea or constipation. Denies rectal bleeding. Genitourinary: Denies dysuria, frequency, or change in urination. Musculoskeletal: Denies joint or muscle swelling or pain. Denies neck or back pain. Skin and breasts: Denies rash or easy bruising. Neurologic: Denies headache, vertigo, loss of consciousness, or loss of sensation. Psychiatric: Denies depression or anxiety. Endocrine: Denies increased thirst. Denies abnormal weight change. Hematologic/Lymphatic: Denies anemia, easy bleeding, or history of blood clots. Allergic/Immunologic: Denies hives or skin allergy. Denies latex allergy. PHYSICAL EXAM General Appearance: Well-appearing, appropriately dressed. No apparent distress , no intoxication. HEENT: EOMI, PERRLA, normal ENT inspection, normal voice, TMs normal, pharynx normal. No conjunctival pallor. No photophobia, scleral icterus. Neck: Supple. Trachea midline. No tenderness, rigidity, carotid bruit, stridor , lymphadenopathy, or thyromegaly. Respiratory/Chest: Lungs CTAB. No shortness of breath, chest tenderness, respiratory distress, accessory muscle use. No crackles, rales, rhonchi, stridor , wheezing, dullness Cardiovascular: RRR. S1, S2. No JVD, murmur, bradycardia, tachycardia. Vascular Pulses: Dorsalis-Pedis (R): 2+, Dorsalis-Pedis (L): 2+ Gastrointestinal/Abdominal: Normal bowel sounds. Abdomen soft, non-distended. No tenderness or rebound tenderness. No organomegaly, pulsatile mass, guarding, hernia, hepatomegaly, splenomegaly. Lymphatic: No adenopathy, tenderness. Musculoskeletal/Extremities: Normal inspection. FROM of all extremities, normal capillary refill. Pelvis Stable. No CVA tenderness. No tenderness to extremities, pedal edema, swelling, erythema or deformity. Integumentary: Appropriate color, dry, warm. No cyanosis, erythema, jaundice or rash Neurologic: petroleum inspector II-XII intact. Fully oriented, alert. Appropriate mood/affect. Motor strength 5/5. No appreciable EOM palsy, facial droop or sensory deficit. Able to perform rapid alternating movements without difficulty. Gait is steady. 11/08/19 17:51 11/08/19 17:51 Past History - Past Medical History Allergies/Adverse Reactions: Allergies Allergy/AdvReac Type Severity Reaction Status Date / Time No Known Allergies Allergy Verified 11/08/19 16:35 Home Medications: Ambulatory Orders Ciprofloxacin [Cipro -] 500 mg PO Q12H 7 Days #14 tablet 10/27/19 Omeprazole 20 mg PO DAILY 10/27/19 metroNIDAZOLE [Flagyl -] 500 mg PO TID 7 Days #21 tablet 10/27/19 Cancer: Yes (S/P Rectal CA) COPD: No GI Disorders: Yes (SBO) - Surgical History Abdominal Surgery: Yes (Colon Resection; Chemo & Radiation) Appendectomy: Yes GI Surgery: Yes (S/P RECTAL CA) - Immunization History Immunization Up to Date: Yes - Psycho Social/Smoking Cessation Hx Smoking History: Never smoked Have you smoked in the past 12 months: No Information on smoking cessation initiated: No Hx Alcohol Use: No Drug/Substance Use Hx: No Substance Use Type: None Hx Substance Use Treatment: No *Physical Exam - Vital Signs Last Vital Signs Temp Pulse Resp BP Pulse Ox 98.0 F 94 H 22 H 136/78 100 11/08/19 16:31 11/08/19 16:31 11/08/19 16:31 11/08/19 16:31 11/08/19 16:31 ED Treatment Course - LABORATORY CBC & Chemistry Diagram: 11/08/19 16:44 11/08/19 16:44 - ADDITIONAL ORDERS Additional order review: Laboratory Results 11/08/19 11/08/19 11/08/19 20:32 20:32 16:44 PT with INR 16.10 H INR 1.36 H PTT (Actin FS) 38.5 H Sodium 141 Potassium 4.1 Chloride 107 Carbon Dioxide 27 Anion Gap 6 L BUN 11.9 Creatinine 1.0 Est GFR (CKD-EPI)AfAm 99.15 Est GFR (CKD-EPI)NonAf 85.55 Random Glucose 121 H Calcium 9.0 Magnesium 2.5 H Total Bilirubin 0.5 AST 37 ALT 61 Alkaline Phosphatase 73 Creatine Kinase Creatine Kinase Index CK-MB (CK-2) Troponin I < 0.02 Total Protein 7.4 Albumin 3.9 11/08/19 16:44 PT with INR INR PTT (Actin FS) Sodium Potassium Chloride Carbon Dioxide Anion Gap BUN Creatinine Est GFR (CKD-EPI)AfAm Est GFR (CKD-EPI)NonAf Random Glucose Calcium Magnesium Total Bilirubin AST ALT Alkaline Phosphatase Creatine Kinase 165 Creatine Kinase Index 0.6 CK-MB (CK-2) 1.1 Troponin I < 0.02 Total Protein Albumin 11/08/19 16:44 RBC 4.84 MCV 89.8 MCHC 33.5 RDW 12.8 MPV 8.1 Neutrophils % 25.5 L D Lymphocytes % 54.1 H D Monocytes % 12.0 H D Eosinophils % 7.7 H D Basophils % 0.7 - RADIOLOGY Radiology Studies Ordered: Category Date Time Status HEAD CT WITHOUT CONTRAST [CT] Stat CT Scan 11/08/19 17:46 Completed - Medications Given in the ED: ED Medications Discontinued Medications Generic Name Dose Route Start Last Admin Trade Name Freq PRN Reason Stop Dose Admin Sodium Chloride 1,000 mls @ 1,000 mls/hr 11/08/19 17:55 11/08/19 18:14 Normal Saline - IV 11/08/19 18:54 1,000 mls/hr ASDIR STA Administration Medical Decision Making - Medical Decision Making 11/08/19 17:52 A/P: 54-year-old male for evaluation of dizziness, chest discomfort and shortness of breath occurring briefly for 20 minutes prior to spontaneous resolution upon arrival in the emergency department Physical exam is unremarkable Differential diagnosis includes but is not limited to-ACS, CVA/TIA, hypoglycemia , electrolyte abnormality, peripheral vertigo, pneumonia, anxiety Less likely CVA as patient has a normal exam at this time. Labs including cardiac profile Chest x-ray EKG Normal saline 1 L IV bolus Noncontrast head CT Urine Reassess 11/08/19 19:[address] is read by Dr. Ramos: No intracranial hemorrhage is seen. There is no extra-axial fluid collection. No discrete infarct is identified within the limitations of CT. There is no obvious mass lesions on noncontrast imaging. The ventricles and cisterns appear unremarkable. Chest x-ray as read by Dr. Warren: No acute chest pathology. EKG sinus rhythm with rate of 81. Normal intervals with QTC 443 ms Normal axis. T wave flattening present in V2. 11/08/19 21:22 Repeat troponin is negative. Patient continues to be asymptomatic I feel it is safe to discharge home follow-up with primary doctor. Symptoms likely due to mixed etiology of n.p.o. status, anesthesia induction and anxiety. I discussed the physical exam findings, ancillary test results and final diagnoses with the patient. I answered all of the patient's questions. The patient was satisfied with the care received and felt comfortable with the discharge plan and treatment plan. The patient will call their primary care physician within 24 hours to arrange follow-up and will return to the Emergency Department with any new, persistent or worsening symptoms. 11/08/19 21:24 Discharge - Discharge Information Problems reviewed: Yes Clinical Impression/Diagnosis: Chest pain Qualifiers: Chest pain type: unspecified Qualified Code(s): R07.9 - Chest pain, unspecified Condition: Stable Disposition: HOME - Admission No - Follow up/Referral Referrals: Niranjan Lynn MD [Primary Care Provider] - - Patient Discharge Instructions Patient Printed Discharge Instructions: DI for Atypical Chest Pain Additional Instructions: Your CT, EKG, chest x-ray and laboratory testing today was unremarkable. It is important that you follow-up with your primary doctor as well as your GI specialist who did the colonoscopy today. Return to emergency department for any new or worsening symptoms. Thank you very much for choosing us to provide your emergent healthcare needs. - Post Discharge Activity
[2019-11-08 17:50] LABS: ALBUMIN 3.9 g/dl (3.4-5.0); BILIRUBIN,TOTAL 0.5 mg/dL (0.2-1); BLOOD UREA NITROGEN 11.9 mg/dL (7-18); MAGNESIUM 2.5 mg/dL (1.8-2.4); POTASSIUM 4.1 mmol/L (3.5-5.1); TOT PROT 7.4 g/dl (6.4-8.2)
[2019-11-08] MEDS ORDERED: SODIUM CHLORIDE 1,000 ML IV STA (17:55)
[2019-11-08 21:03] LABS: INR 1.36 (0.83-1.09); PROTHROMBIN TIME (PATIENT) 16.1 SEC (9.7-13.0)
[2019-11-08 21:05] LABS: ACTIVATED PTT 38.5 SECONDS (25.2-36.5)
--- NOTE | 2019-11-09 14:32 | EKG ---
Test Reason : Blood Pressure : / mmHG Vent. Rate : 081 BPM Atrial Rate : 081 BPM P-R Int : 162 ms QRS Dur : 090 ms QT Int : 382 ms P-R-T Axes : 064 048 047 degrees QTc Int : 443 ms NORMAL SINUS RHYTHM POSSIBLE LEFT ATRIAL ENLARGEMENT BORDERLINE ECG Confirmed by MD AIDE, MARIAM ([id number]) on 11/09/2019 2:32:24 PM Referred By: Confirmed By:MARIAM NOBLE MD
== END 2019-11-08 23:31 | disposition home or self-care (01) ==
LOC: JER 16:30
PROC: 3E0337Z Introduction of Electrolytic and Water Balance Substance into Peripheral Vein, Percutaneous Approach (ICD-10-PCS; principal; 2019-11-08)
DX: R07.9 Chest pain, unspecified (principal); Z98.890 Other specified postprocedural states; Z85.048 Personal history of other malignant neoplasm of rectum, rectosigmoid junction, and anus; Z87.19 Personal history of other diseases of the digestive system
CPT/HCPCS: 36415; 70450-TC; 71046-TC-FY; 80053; 82550; 82553; 83735; 84484; 85025; 85610; 85730; 93005; 93010; 99283-25; J7030

== ENCOUNTER 2020-07-17 10:06 | Emergency (ER) | payer OTHER ==
[2020-07-17 10:17] VITALS: BP 151/88; PULSE 78; TEMP 98.4; BMI 22.4
--- OUTSIDE RECORDS SUMMARY | 2020-07-17 10:49 | XMS ---
:1965 Author Organization [facility] Support Name Relationship Address Phone [facility] Unavailable [address] [place] [address] GINNY MEREDITH [address] [facility] [place] [address] Re-disclosure Warning The records that you are about to access may contain information from federally- assisted alcohol or drug abuse programs. If such information is present, then the following federally mandated warning applies: This information has been disclosed to you from records protected by federal confidentiality rules (42 CFR part 2). The federal rules prohibit you from making any further disclosure of this information unless further disclosure is expressly permitted by the written consent of the person to whom it pertains or as otherwise permitted by 42 CFR part 2. A general authorization for the release of medical or other information is NOT sufficient for this purpose. The Federal rules restrict any use of the information to criminally investigate or prosecute any alcohol or drug abuse patient.The records that you are about to access may contain highly sensitive health information, the redisclosure of which is protected by Article 27-F of the [facility] Public Health law. If you continue you may haveaccess to information: Regarding HIV / AIDS; Provided by facilities licensed or operated by the [facility] Office of Mental Health; or Provided by the [facility] Office for People With Developmental Disabilities. If such information is present, then the following [facility] mandated warning applies: This information has been disclosed to you from confidential records which are protected by state law. State law prohibits you from making any further disclosure of this information without the specific written consent of the person to whom it pertains, or as otherwise permitted by law. Any unauthorized further disclosure in violation of state law may result in a fine or correction sentence or both. A general authorization for the release of medical or other information is NOT sufficient authorization for further disclosure. Insurance Providers Payer name Policy type Policy ID Covered Covered democrat's Policy P melanie / Coverage democrat ID relationship to Ro Inf ormation type ro [facility] [employer] [id number] SP [id number] CARE HMO/POS/EPO SELF PAY SP INSURANCE Results ID Date Data Source [id number] 01/23/2020 12:00:00 AM EDT [facility] Name Value Range Interpretation Code Description Data Jesi rce(s) Supporting Document(s ) 2019-nCoV [facility] RNA XXX TIM+probe- Imp This lab was ordered by [facility]-Marilee MCBRIDE and reported by [employer] Procedure
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
== END 2020-07-17 10:54 | disposition home or self-care (01) ==
LOC: JERFT 10:06
DX: S00.03XA Contusion of scalp, initial encounter (principal)
CPT/HCPCS: 99283-25

== ENCOUNTER 2020-10-09 23:52 | Emergency (ER) | payer OTHER ==
[2020-10-09 23:56] VITALS: BP 141/84; PULSE 86; TEMP 97.7; BMI 21.9
[2020-10-10 02:19] LABS: BASO % 0.9 % (0-2.0); EOS % 7.8 % (0-4.5); HEMATOCRIT 40.9 % (35.4-49); HEMOGLOBIN 13.7 GM/dL (11.7-16.9); MCH 29.9 pg (25.7-33.7); MCHC 33.5 g/dl (32.0-35.9); MEAN CELL VOLUME 89.2 fl (80-96); MEAN PLT VOLUME 8.1 fl (7.5-11.1); MONO % 10.7 % (3.8-10.2); NEUT % 34.6 % (42.8-82.8); PLATELET COUNT 195 K/MM3 (134-434); RBC 4.59 M/mm3 (4.00-5.60); RDW 12.8 % (11.9-15.9); WHITE BLOOD COUNT 3.6 K/mm3 (4.0-10.0)
[2020-10-10 02:26] LABS: INR 1.31 (0.83-1.09)
[2020-10-10 02:41] LABS: CALCIUM 9.1 mg/dL (8.5-10.1)
[2020-10-10 02:42] LABS: ALBUMIN 3.9 g/dl (3.4-5.0); BLOOD UREA NITROGEN 18.7 mg/dL (7-18); CO2 31 mmol/L (21-32)
[2020-10-10 02:45] LABS: CREATININE 1.1 mg/dL (0.55-1.3); SGOT/AST 24 U/L (15-37); SGPT/ALT 50 U/L (13-61)
[2020-10-10 02:46] LABS: BILIRUBIN,TOTAL 0.4 mg/dL (0.2-1); TOT PROT 7.6 g/dl (6.4-8.2)
[2020-10-10 02:47] LABS: ALK PHOS 82 U/L (45-117)
[2020-10-10 03:38] LABS: ANION GAP 5 MMOL/L (8-16); CHLORIDE 103 mmol/L (98-107); GLUCOSE,RANDOM 117 mg/dL (74-106); POTASSIUM 4.3 mmol/L (3.5-5.1); SODIUM 138 mmol/L (136-145)
== END 2020-10-10 04:06 | disposition home or self-care (01) ==
LOC: JER 23:52
DX: R00.2 Palpitations (principal); F41.0 Panic disorder [episodic paroxysmal anxiety]
CPT/HCPCS: 36415; 71046-TC-FY; 80053; 82550; 82553; 84443; 84484; 85025; 85610; 93005; 93010; 99285-25

== ENCOUNTER 2021-01-19 03:49 | Emergency (ER) | payer OTHER ==
[2021-01-19 04:22] VITALS: BP 128/81; PULSE 76; TEMP 98; BMI 22.0
[2021-01-19] MEDS ORDERED: MAG HYDROX/AL HYDROX/SIMETH 30 ML UNIT-DOSE CUP PO ONE (04:26)
[2021-01-19] MEDS ORDERED: MAG HYDROX/AL HYDROX/SIMETH 30 ML UNIT-DOSE CUP ONE (04:41)
[2021-01-19 05:04] LABS: HEMATOCRIT 41.1 % (35.4-49); HEMOGLOBIN 14.2 GM/dL (11.7-16.9); MCH 30.5 pg (25.7-33.7); MCHC 34.5 g/dl (32.0-35.9); MEAN CELL VOLUME 88.3 fl (80-96); MEAN PLT VOLUME 8.2 fl (7.5-11.1); PLATELET COUNT 182 K/MM3 (134-434); RBC 4.65 M/mm3 (4.00-5.60); RDW 12.9 % (11.9-15.9); WHITE BLOOD COUNT 3.7 K/mm3 (4.0-10.0)
[2021-01-19 05:21] LABS: CHLORIDE 107 mmol/L (98-107); SODIUM 141 mmol/L (136-145)
[2021-01-19 05:23] LABS: CALCIUM 9.3 mg/dL (8.5-10.1)
[2021-01-19 05:24] LABS: ANION GAP 3 MMOL/L (8-16); BLOOD UREA NITROGEN 13.8 mg/dL (7-18); CO2 31 mmol/L (21-32); GLUCOSE,RANDOM 126 mg/dL (74-106)
[2021-01-19 05:27] LABS: CHOLESTEROL 223 mg/dL (50-200); CREATININE 0.9 mg/dL (0.55-1.3); SGOT/AST 19 U/L (15-37); SGPT/ALT 41 U/L (13-61)
[2021-01-19 05:28] LABS: BILIRUBIN,TOTAL 0.4 mg/dL (0.2-1); TOT PROT 7.5 g/dl (6.4-8.2)
[2021-01-19 05:30] LABS: ALK PHOS 84 U/L (45-117)
== END 2021-01-19 05:57 | disposition home or self-care (01) ==
LOC: JER 03:49
DX: R07.9 Chest pain, unspecified (principal); F41.0 Panic disorder [episodic paroxysmal anxiety]
CPT/HCPCS: 36415; 71046-TC-FY; 80053; 82465; 84484; 85027; 93005; 93010; 99284-25

== ENCOUNTER 2021-06-18 21:08 | Emergency (ER) | payer OTHER ==
[2021-06-18 21:11] VITALS: BP 132/82; PULSE 80; TEMP 98; BMI 22.6
[2021-06-18 22:11] LABS: EOS % 8.2 % (0-4.5); HEMATOCRIT 39.9 % (35.4-49); HEMOGLOBIN 13.6 GM/dL (11.7-16.9); LYMPH % 55.5 % (8-40); MCH 30.1 pg (25.7-33.7); MCHC 34.2 g/dl (32.0-35.9); MEAN CELL VOLUME 88.1 fl (80-96); MEAN PLT VOLUME 7.4 fl (7.5-11.1); MONO % 7.9 % (3.8-10.2); NEUT % 27.4 % (42.8-82.8); PLATELET COUNT 191 10^3/uL (134-434); RBC 4.52 M/mm3 (4.00-5.60); RDW 12.3 % (11.9-15.9); WHITE BLOOD COUNT 4.1 K/mm3 (4.0-10.0)
[2021-06-18 22:26] LABS: CHLORIDE 107 mmol/L (98-107); SODIUM 142 mmol/L (136-145)
[2021-06-18 22:27] LABS: CALCIUM 8.9 mg/dL (8.5-10.1)
[2021-06-18 22:28] LABS: ANION GAP 5 MMOL/L (8-16); BLOOD UREA NITROGEN 9.9 mg/dL (7-18); CO2 30 mmol/L (21-32); GLUCOSE,RANDOM 133 mg/dL (74-106)
[2021-06-18 22:31] LABS: CREATININE 1.1 mg/dL (0.55-1.3); SGOT/AST 21 U/L (15-37); SGPT/ALT 40 U/L (13-61)
[2021-06-18] MEDS ORDERED: ACETAMINOPHEN 325 MG TABLET (FP) PO ONE (22:31)
[2021-06-18 22:32] LABS: BILIRUBIN,TOTAL 0.5 mg/dL (0.2-1); TOT PROT 7.5 g/dl (6.4-8.2)
[2021-06-18 22:34] LABS: ALK PHOS 76 U/L (45-117)
[2021-06-18 22:44] LABS: URINE APPEARANCE CLEAR; URINE BILIRUBIN NEGATIVE (NEGATIVE); URINE COLOR YELLOW; URINE GLUCOSE (UA) NEGATIVE (NEGATIVE); URINE KETONE NEGATIVE (NEGATIVE); URINE LEUK ESTERASE NEGATIVE (NEGATIVE); URINE NITRITE NEGATIVE (NEGATIVE); URINE PROTEIN NEGATIVE (NEGATIVE); URINE UROBILINOGEN 0.2 mg/dL (0.2-1.0)
[2021-06-18] MEDS ORDERED: ACETAMINOPHEN 325 MG TABLET (FP) ONE (23:18)
[2021-06-18 23:51] LABS: LIPASE 116 U/L (73-393)
[2021-06-19 01:37] LABS: LIPASE 135 U/L (73-393)
== END 2021-06-19 02:07 | disposition home or self-care (01) ==
LOC: JER 21:08
DX: R07.9 Chest pain, unspecified (principal)
CPT/HCPCS: 36415; 71046-TC-FY; 80053; 81003; 82550; 82553; 83690; 84484; 85025; 85379; 87086; 93005; 93010; 99285-25

== ENCOUNTER 2021-07-28 18:16 | Emergency (ER) | payer OTHER ==
[2021-07-28 18:23] VITALS: BMI 21.7
[2021-07-28] MEDS ORDERED: LIDOCAINE 5% TOPICAL PATCH TP ONE (21:50)
[2021-07-28] MEDS ORDERED: KETOROLAC TROMETHAMINE 15 MG/ML VIAL IVPUSH ONE (21:50)
[2021-07-28 21:51] LABS: BASO % 0.4 % (0-2.0); EOS % 1.2 % (0-4.5); HEMATOCRIT 40.1 % (35.4-49); HEMOGLOBIN 13.7 GM/dL (11.7-16.9); MCH 29.9 pg (25.7-33.7); MCHC 34.3 g/dl (32.0-35.9); MEAN CELL VOLUME 87.4 fl (80-96); MEAN PLT VOLUME 7.8 fl (7.5-11.1); MONO % 5.5 % (3.8-10.2); NEUT % 66.9 % (42.8-82.8); PLATELET COUNT 224 10^3/uL (134-434); RBC 4.59 M/mm3 (4.00-5.60); RDW 12.5 % (11.9-15.9); WHITE BLOOD COUNT 5.7 K/mm3 (4.0-10.0)
[2021-07-28] MEDS ORDERED: KETOROLAC TROMETHAMINE 15 MG/ML VIAL ONE (21:59)
[2021-07-28] MEDS ORDERED: LIDOCAINE 5% TOPICAL PATCH ONE (21:59)
[2021-07-28] MEDS ORDERED: LIDOCAINE PATCH REMOVAL MC SCH (22:00)
[2021-07-28 22:11] LABS: CALCIUM 9.2 mg/dL (8.5-10.1)
[2021-07-28 22:14] LABS: CREATININE 0.8 mg/dL (0.55-1.3)
[2021-07-28 22:16] LABS: BILIRUBIN,TOTAL 0.4 mg/dL (0.2-1)
[2021-07-28 22:50] VITALS: BP 139/80; PULSE 79; TEMP 99.1
== END 2021-07-28 22:40 | disposition home or self-care (01) ==
LOC: JER 18:16
PROC: 3E0333Z Introduction of Anti-inflammatory into Peripheral Vein, Percutaneous Approach (ICD-10-PCS; principal; 2021-07-28)
DX: S20.219A Contusion of unspecified front wall of thorax, initial encounter (principal); Y04.0XXA Assault by unarmed brawl or fight, initial encounter; Y92.9 Unspecified place or not applicable
CPT/HCPCS: 36415; 70450-TC; 70486-TC; 71046-TC-FY; 72125-TC; 80053; 82550; 82553; 84484; 85025; 93005; 93010; 99285-25

== ENCOUNTER 2021-11-22 20:42 | Observation (INO) | payer OTHER ==
[2021-11-22 20:51] VITALS: BMI 21.9
[2021-11-22 22:24] LABS: BASO % 0.8 % (0-2.0); EOS % 6.2 % (0-4.5); HEMATOCRIT 41.1 % (35.4-49); LYMPH % 43.1 % (8-40); MEAN CELL VOLUME 88.2 fl (80-96); MEAN PLT VOLUME 7.6 fl (7.5-11.1); MONO % 8.4 % (3.8-10.2); NEUT % 41.5 % (42.8-82.8); PLATELET COUNT 200 10^3/uL (134-434); RBC 4.66 M/mm3 (4.00-5.60); RDW 12.8 % (11.9-15.9)
[2021-11-22 22:30] LABS: INR 1.35 (0.83-1.09); PROTHROMBIN TIME (PATIENT) 15.6 SEC (9.7-13.0)
[2021-11-22 22:33] LABS: ACTIVATED PTT 31.2 SECONDS (25.2-36.5)
[2021-11-22 22:47] LABS: CALCIUM 9.3 mg/dL (8.5-10.1)
[2021-11-22 22:48] LABS: ALBUMIN 4.3 g/dl (3.4-5.0); BLOOD UREA NITROGEN 18.2 mg/dL (7-18); MAGNESIUM 2.5 mg/dL (1.8-2.4)
[2021-11-22 22:53] LABS: BILIRUBIN,TOTAL 0.4 mg/dL (0.2-1)
[2021-11-22] MEDS ORDERED: SODIUM CHLORIDE 500 ML IV STA (23:44)
[2021-11-23] MEDS ORDERED: FAMOTIDINE 20 MG/50 ML IVPB 20 MG/50 ML MG IVPB ONE ×2 (01:12→02:39)
[2021-11-23] MEDS ORDERED: MAG HYDROX/AL HYDROX/SIMETH 30 ML UNIT-DOSE CUP PO ONE (03:31)
[2021-11-23] MEDS ORDERED: MAG HYDROX/AL HYDROX/SIMETH 30 ML UNIT-DOSE CUP ONE (03:34)
[2021-11-23] MEDS ORDERED: ASPIRIN 81 MG CHEWABLE TABLETS PO ONE (03:45)
[2021-11-23] MEDS ORDERED: ASPIRIN 81 MG CHEWABLE TABLETS ONE (04:07)
[2021-11-23] MEDS ORDERED: NITROGLYCERIN 2% OINTMENT - 1GM PACKET TD ONE ×2 (04:52→05:17)
[2021-11-23] MEDS ORDERED: POLYETHYLENE GLYCOL (HEALTHYLAX) 3350 17 GM PACKET PO PRN (04:53)
[2021-11-23] MEDS ORDERED: ACETAMINOPHEN 1000 MG/100 ML BAG IVPB ONE (04:57)
[2021-11-23 06:32] VITALS: TEMP 98.1
[2021-11-23 08:29] LABS: BASO % 0.6 % (0-2.0); EOS % 6.7 % (0-4.5); HEMATOCRIT 39.3 % (35.4-49); LYMPH % 52.4 % (8-40); MCH 29.1 pg (25.7-33.7); MEAN CELL VOLUME 88.2 fl (80-96); MONO % 8.4 % (3.8-10.2); NEUT % 31.9 % (42.8-82.8); PLATELET COUNT 191 10^3/uL (134-434); RBC 4.45 M/mm3 (4.00-5.60); RDW 12.4 % (11.9-15.9); WHITE BLOOD COUNT 3.3 K/mm3 (4.0-10.0)
[2021-11-23 08:51] LABS: CALCIUM 8.6 mg/dL (8.5-10.1)
[2021-11-23 08:55] LABS: CREATININE 0.8 mg/dL (0.55-1.3)
[2021-11-23] MEDS ORDERED: REGADENOSON 0.4 MG/5 ML PRE-FILLED SYRINGE IVPUSH ONE ×2 (09:53→10:00)
[2021-11-23] MEDS ORDERED: ENOXAPARIN NA (PORCINE) 40 MG/0.4 ML DISP.SYRIN SQ SCH (10:00)
[2021-11-23] MEDS ORDERED: PANTOPRAZOLE 40 MG TABLET PO SCH (10:00)
[2021-11-23] MEDS ORDERED: metoPROLOL SUCCINATE 25 MG TAB.SR.24H (FP) PO SCH (10:00)
[2021-11-23] MEDS ORDERED: ACETAMINOPHEN 325 MG TABLET (FP) PO PRN (12:00)
[2021-11-23] MEDS ORDERED: ENOXAPARIN NA (PORCINE) 40 MG/0.4 ML DISP.SYRIN SQ ONE (14:15)
[2021-11-23] MEDS ORDERED: metoPROLOL SUCCINATE 25 MG TAB.SR.24H (FP) ONE (14:15)
[2021-11-23] MEDS ORDERED: PANTOPRAZOLE 40 MG TABLET ONE (14:15)
[2021-11-23 15:42] VITALS: BP 125/78; PULSE 76
[2021-11-23] MEDS ORDERED: FAMOTIDINE 20 MG TABLET PO SCH (22:00)
== END 2021-11-23 15:43 | disposition home or self-care (01) ==
LOC: JER 20:42 → JERBED 11-23 03:28
PROVIDERS: ADMIT Hospitalist; ATTEND Family Medicine
PROC: 3E033NZ Introduction of Analgesics, Hypnotics, Sedatives into Peripheral Vein, Percutaneous Approach (ICD-10-PCS; principal; 2021-11-23)
PROC: 3E023GC Introduction of Other Therapeutic Substance into Muscle, Percutaneous Approach (ICD-10-PCS; 2021-11-23)
PROC: 3E033GC Introduction of Other Therapeutic Substance into Peripheral Vein, Percutaneous Approach (ICD-10-PCS; 2021-11-23)
PROC: 3E0337Z Introduction of Electrolytic and Water Balance Substance into Peripheral Vein, Percutaneous Approach (ICD-10-PCS; 2021-11-23)
DX: K21.9 Gastro-esophageal reflux disease without esophagitis (principal); R07.89 Other chest pain; E78.5 Hyperlipidemia, unspecified; K56.609 Unspecified intestinal obstruction, unspecified as to partial versus complete obstruction; Z85.048 Personal history of other malignant neoplasm of rectum, rectosigmoid junction, and anus; Z87.19 Personal history of other diseases of the digestive system; Z86.39 Personal history of other endocrine, nutritional and metabolic disease
CPT/HCPCS: 36415; 71046-TC-FY; 78452-TC; 80048; 80053; 83735; 84484; 85025; 85610; 85730; 93005; 93010; 93017; 93306-TC; 99285-25; A9502; C9803; G0378; J2785; U0003; U0005

== ENCOUNTER 2021-11-28 00:44 | Emergency (ER) | payer OTHER ==
[2021-11-28 01:04] VITALS: BP 163/93; PULSE 88; TEMP 97.3; BMI 21.4
[2021-11-28] MEDS ORDERED: PANTOPRAZOLE 40 MG TABLET PO ONE (01:40)
[2021-11-28] MEDS ORDERED: LACTATED RINGERS SOLUTION 1000 ML INFUS.BAG IV ONE (01:41)
[2021-11-28] MEDS ORDERED: FAMOTIDINE 20 MG/50 ML IVPB 20 MG/50 ML MG IVPB ONE (01:41)
[2021-11-28] MEDS ORDERED: LIDOCAINE VISCOUS 2% ORAL/TOP 15 ML UNIT-DOSE CUP MM ONE (01:58)
[2021-11-28] MEDS ORDERED: MAG HYDROX/AL HYDROX/SIMETH 30 ML UNIT-DOSE CUP PO ONE (01:58)
[2021-11-28] MEDS ORDERED: FAMOTIDINE 10 MG TABLET PO ONE (01:59)
[2021-11-28] MEDS ORDERED: ACETAMINOPHEN 500 MG TABLET (FP) PO ONE (01:59)
[2021-11-28] MEDS ORDERED: FAMOTIDINE 20 MG TABLET ONE (02:11)
[2021-11-28] MEDS ORDERED: LIDOCAINE VISCOUS 2% ORAL/TOP 15 ML UNIT-DOSE CUP ONE (02:12)
[2021-11-28] MEDS ORDERED: ACETAMINOPHEN 325 MG TABLET (FP) ONE (02:12)
[2021-11-28] MEDS ORDERED: MAG HYDROX/AL HYDROX/SIMETH 30 ML UNIT-DOSE CUP ONE (02:12)
[2021-11-28] MEDS ORDERED: PANTOPRAZOLE 40 MG TABLET ONE (02:26)
== END 2021-11-28 03:02 | disposition home or self-care (01) ==
LOC: JER 00:44
DX: K21.9 Gastro-esophageal reflux disease without esophagitis (principal)
CPT/HCPCS: 71046-TC-FY; 99283-25

== ENCOUNTER 2021-11-28 04:45 | Emergency (ER) | payer OTHER ==
[2021-11-28 05:16] VITALS: TEMP 97; BMI 21.5
[2021-11-28 07:29] LABS: BASO % 0.8 % (0-2.0); EOS % 5.1 % (0-4.5); HEMATOCRIT 41.6 % (35.4-49); HEMOGLOBIN 14.1 GM/dL (11.7-16.9); LYMPH % 44.9 % (8-40); MCH 29.7 pg (25.7-33.7); MCHC 33.9 g/dl (32.0-35.9); MEAN CELL VOLUME 87.6 fl (80-96); MEAN PLT VOLUME 8.4 fl (7.5-11.1); NEUT % 43.2 % (42.8-82.8); PLATELET COUNT 207 10^3/uL (134-434); RBC 4.75 M/mm3 (4.00-5.60); RDW 12.2 % (11.9-15.9); WHITE BLOOD COUNT 3.5 K/mm3 (4.0-10.0)
[2021-11-28 07:45] LABS: INR 1.44 (0.83-1.09); PROTHROMBIN TIME (PATIENT) 16.6 SEC (9.7-13.0)
[2021-11-28 07:48] LABS: ACTIVATED PTT 30.5 SECONDS (25.2-36.5)
[2021-11-28 07:51] LABS: CALCIUM 9.2 mg/dL (8.5-10.1)
[2021-11-28 07:53] LABS: ALBUMIN 4.2 g/dl (3.4-5.0); BLOOD UREA NITROGEN 15.2 mg/dL (7-18); MAGNESIUM 2.6 mg/dL (1.8-2.4)
[2021-11-28 07:54] LABS: CREATININE 0.8 mg/dL (0.55-1.3)
[2021-11-28 07:56] LABS: BILIRUBIN,TOTAL 0.8 mg/dL (0.2-1); TOT PROT 7.8 g/dl (6.4-8.2)
[2021-11-28 10:04] VITALS: BP 108/66; PULSE 85
== END 2021-11-28 12:06 | disposition home or self-care (01) ==
LOC: JER 04:45
DX: R07.9 Chest pain, unspecified (principal)
CPT/HCPCS: 36415; 80053; 82550; 83735; 84484; 85025; 85610; 85730; 93005; 93010; 99285-25

== ENCOUNTER 2022-01-28 23:54 | Emergency (ER) | payer OTHER ==
[2022-01-29] VITALS: TEMP 97.5; BMI 21.7
[2022-01-29] MEDS ORDERED: FAMOTIDINE 20 MG/50 ML IVPB 20 MG/50 ML MG IVPB ONE (00:14)
[2022-01-29] MEDS ORDERED: MAG HYDROX/AL HYDROX/SIMETH -MYLANTA- ORAL SUSPENSION PO ONE (00:14)
[2022-01-29] MEDS ORDERED: ACETAMINOPHEN 1000 MG/100 ML BAG IVPB ONE (00:14)
[2022-01-29] MEDS ORDERED: MAG HYDROX/AL HYDROX/SIMETH 30 ML UNIT-DOSE CUP ONE (00:26)
[2022-01-29] MEDS ORDERED: ACETAMINOPHEN INJECTION 100 ML IVPB ONE (00:26)
[2022-01-29] MEDS ORDERED: FAMOTIDINE 10 MG/ML VIAL IVPB ONE (00:27)
[2022-01-29 00:52] LABS: PH,URINE 7.5 (5.0-8.0); URINE APPEARANCE CLEAR; URINE BILIRUBIN NEGATIVE (NEGATIVE); URINE COLOR YELLOW; URINE GLUCOSE (UA) NEGATIVE (NEGATIVE); URINE KETONE NEGATIVE (NEGATIVE); URINE LEUK ESTERASE NEGATIVE (NEGATIVE); URINE NITRITE NEGATIVE (NEGATIVE); URINE PROTEIN NEGATIVE (NEGATIVE); URINE UROBILINOGEN 0.2 mg/dL (0.2-1.0)
[2022-01-29 00:56] LABS: BASO % 0.8 % (0-2.0); EOS % 8.4 % (0-4.5); HEMATOCRIT 40.3 % (35.4-49); HEMOGLOBIN 13.7 GM/dL (11.7-16.9); LYMPH % 51.9 % (8-40); MEAN CELL VOLUME 88.4 fl (80-96); MEAN PLT VOLUME 7.3 fl (7.5-11.1); MONO % 10.2 % (3.8-10.2); NEUT % 28.7 % (42.8-82.8); PLATELET COUNT 199 10^3/uL (134-434); RBC 4.56 M/mm3 (4.00-5.60); RDW 12.5 % (11.9-15.9); WHITE BLOOD COUNT 3.6 K/mm3 (4.0-10.0)
[2022-01-29 01:26] LABS: ALBUMIN 3.9 g/dl (3.4-5.0); BLOOD UREA NITROGEN 15.1 mg/dL (7-18); CALCIUM 9.1 mg/dL (8.5-10.1)
[2022-01-29 01:31] LABS: BILIRUBIN,TOTAL 0.3 mg/dL (0.2-1); TOT PROT 7.3 g/dl (6.4-8.2)
[2022-01-29 05:07] VITALS: BP 119/65; PULSE 58
[2022-01-30 18:12] LABS: SARS-CoV-2 NAA Not Detected (Not Detected)
== END 2022-01-29 06:34 | disposition home or self-care (01) ==
LOC: JER 23:54
PROC: 3E033GC Introduction of Other Therapeutic Substance into Peripheral Vein, Percutaneous Approach (ICD-10-PCS; principal; 2022-01-28)
DX: R10.13 Epigastric pain (principal); R53.1 Weakness
CPT/HCPCS: 36415; 71045-TC-FY; 74177-TC; 80053; 81003; 83690; 84484; 85025; 87086; 87804; 87807; 93005; 93010; 99285-25; C9803-CS; U0003; U0005

== ENCOUNTER 2022-02-04 13:11 | Emergency (ER) | payer OTHER ==
[2022-02-04 13:28] VITALS: TEMP 98.6; BMI 21.7
[2022-02-04] MEDS ORDERED: ACETAMINOPHEN 500 MG TABLET (FP) PO ONE (13:44)
[2022-02-04] MEDS ORDERED: METOCLOPRAMIDE HCL INJECTION 10 MG/2 ML VIAL IVPB ONE (13:44)
[2022-02-04] MEDS ORDERED: METOCLOPRAMIDE HCL INJECTION 10 MG/2 ML VIAL ONE (13:57)
[2022-02-04] MEDS ORDERED: ACETAMINOPHEN 325 MG TABLET (FP) ONE (13:57)
[2022-02-04 16:07] VITALS: BP 137/74; PULSE 72
== END 2022-02-04 16:08 | disposition home or self-care (01) ==
LOC: JER 13:11
PROC: 3E033GC Introduction of Other Therapeutic Substance into Peripheral Vein, Percutaneous Approach (ICD-10-PCS; principal; 2022-02-04)
DX: S06.0X0A Concussion without loss of consciousness, initial encounter (principal); W20.8XXA Other cause of strike by thrown, projected or falling object, initial encounter
CPT/HCPCS: 70450-TC; 99284-25

== ENCOUNTER 2022-08-23 00:16 | Emergency (ER) | payer OTHER ==
[2022-08-23 00:33] VITALS: TEMP 97.3; BMI 21.4
[2022-08-23] MEDS ORDERED: LACTATED RINGERS SOLUTION 1000 ML INFUS.BAG IV ONE (01:19)
[2022-08-23 01:47] LABS: BASO % 0.7 % (0-2.0); EOS % 5.7 % (0-4.5); HEMATOCRIT 47.5 % (35.4-49); HEMOGLOBIN 15.6 GM/dL (11.7-16.9); LYMPH % 43.5 % (8-40); MCH 29.5 pg (25.7-33.7); MCHC 32.9 g/dl (32.0-35.9); MEAN CELL VOLUME 89.5 fl (80-96); MEAN PLT VOLUME 7.9 fl (7.5-11.1); MONO % 7.8 % (3.8-10.2); NEUT % 42.3 % (42.8-82.8); PLATELET COUNT 216 10^3/uL (134-434); RBC 5.31 M/mm3 (4.00-5.60); RDW 12.8 % (11.9-15.9); WHITE BLOOD COUNT 4.7 K/mm3 (4.0-10.0)
[2022-08-23 02:01] LABS: CALCIUM 9.7 mg/dL (8.5-10.1)
[2022-08-23 02:02] LABS: ALBUMIN 4.6 g/dl (3.4-5.0); BLOOD UREA NITROGEN 18.6 mg/dL (7-18)
[2022-08-23 02:07] LABS: BILIRUBIN,TOTAL 0.3 mg/dL (0.2-1); TOT PROT 8.6 g/dl (6.4-8.2)
[2022-08-23 02:14] LABS: INR 1.28 (0.83-1.09); PROTHROMBIN TIME (PATIENT) 14.8 SEC (9.7-13.0)
[2022-08-23 02:17] LABS: ACTIVATED PTT 30.1 SECONDS (25.2-36.5)
[2022-08-23] MEDS ORDERED: ASPIRIN 81 MG CHEWABLE TABLETS PO ONE (04:03)
[2022-08-23] MEDS ORDERED: ASPIRIN 81 MG CHEWABLE TABLETS ONE (04:04)
[2022-08-23] MEDS ORDERED: METOPROLOL TARTRATE 5 MG/5 ML VIAL IVPUSH ONE ×2 (04:06→04:21)
[2022-08-23] MEDS ORDERED: METOPROLOL TARTRATE 5 MG/5 ML VIAL ONE (04:07)
[2022-08-23] MEDS ORDERED: ASPIRIN COATED 81 MG TABLET.EC PO ONE (04:07)
[2022-08-23 04:26] VITALS: BP 124/84; PULSE 80; RESP 18
[2022-08-23] MEDS ORDERED: HEPARIN NA (PORCINE) 5,000 UNITS/ML 1ML VIAL IVPUSH PRN ×2 (04:50)
[2022-08-23] MEDS ORDERED: HEPARIN INFUSION - 25,000 UNITS/500 ML INFUS.BAG IVPB ONE (04:51)
[2022-08-23] MEDS ORDERED: HEPARIN - 25,000 UNIT in SODIUM CHLORIDE 495 ML IV SCH (05:00)
[2022-08-23 06:45] LABS: MAGNESIUM 2.4 mg/dL (1.8-2.4)
== END 2022-08-23 05:04 | disposition short-term general hospital (02) ==
LOC: JER 00:16
PROC: 3E033GC Introduction of Other Therapeutic Substance into Peripheral Vein, Percutaneous Approach (ICD-10-PCS; principal; 2022-08-23)
PROC: 3E033GC Introduction of Other Therapeutic Substance into Peripheral Vein, Percutaneous Approach (ICD-10-PCS; 2022-08-23)
PROC: 3E033GC Introduction of Other Therapeutic Substance into Peripheral Vein, Percutaneous Approach (ICD-10-PCS; 2022-08-23)
PROC: 3E033GC Introduction of Other Therapeutic Substance into Peripheral Vein, Percutaneous Approach (ICD-10-PCS; 2022-08-23)
DX: R00.0 Tachycardia, unspecified (principal); J18.9 Pneumonia, unspecified organism
CPT/HCPCS: 0241U-QW; 36415; 71045-TC-FY; 71275-TC; 80053; 83735; 84439; 84443; 84484; 85025; 85610; 85730; 86850; 86900; 86901; 93005; 93010; 99285-25; J1644

== ENCOUNTER 2023-07-05 16:09 | Emergency (ER) | payer OTHER ==
[2023-07-05 16:21] VITALS: BP 91/54; PULSE 68; RESP 18; TEMP 98.3; BMI 21.4
[2023-07-05] MEDS ORDERED: IBUPROFEN 600 MG TABLET (FP) PO ONE ×2 (17:12→17:14)
== END 2023-07-05 18:15 | disposition home or self-care (01) ==
LOC: JERFT 16:09
DX: M25.562 Pain in left knee (principal); W22.8XXA Striking against or struck by other objects, initial encounter; Y99.0 Civilian activity done for income or pay
CPT/HCPCS: 73562-TC-LT-FY; 99283-25

== ENCOUNTER 2023-07-05 22:25 | Emergency (ER) | payer OTHER ==
[2023-07-05 22:32] VITALS: TEMP 98.9; BMI 21.4
[2023-07-06 00:57] LABS: BASO % 0.6 % (0-2.0); EOS % 9.6 % (0-4.5); HEMATOCRIT 39.7 % (35.4-49); HEMOGLOBIN 13.7 GM/dL (11.7-16.9); LYMPH % 27.3 % (8-40); MCH 30.3 pg (25.7-33.7); MCHC 34.5 g/dl (32.0-35.9); MEAN PLT VOLUME 7.7 fl (7.5-11.1); MONO % 9.1 % (3.8-10.2); NEUT % 53.4 % (42.8-82.8); PLATELET COUNT 164 10^3/uL (134-434); RBC 4.51 M/mm3 (4.00-5.60); RDW 12.9 % (11.9-15.9); WHITE BLOOD COUNT 4.3 K/mm3 (4.0-10.0)
[2023-07-06 02:00] LABS: CALCIUM 8.5 mg/dL (8.5-10.1)
[2023-07-06 02:01] LABS: ALBUMIN 3.8 g/dl (3.4-5.0); BLOOD UREA NITROGEN 14.8 mg/dL (7-18)
[2023-07-06 02:04] LABS: CREATININE 0.8 mg/dL (0.55-1.3)
[2023-07-06 02:06] LABS: BILIRUBIN,TOTAL 0.5 mg/dL (0.2-1); TOT PROT 7.3 g/dl (6.4-8.2)
[2023-07-06 04:48] VITALS: BP 117/65; PULSE 61; RESP 16
== END 2023-07-06 08:19 | disposition home or self-care (01) ==
LOC: JER 22:25
DX: R07.89 Other chest pain (principal)
CPT/HCPCS: 36415; 71046-TC-FY; 80053; 84484; 85025; 93005; 93010; 99285-25

== ENCOUNTER 2023-09-29 18:45 | Emergency (ER) | payer OTHER ==
[2023-09-29 19:40] VITALS: RESP 18; BMI 21.4
[2023-09-29 20:46] LABS: BASO % 0.4 % (0-2.0); EOS % 0.4 % (0-4.5); HEMOGLOBIN 14.6 GM/dL (11.7-16.9); LYMPH % 22.6 % (8-40); MCHC 33.9 g/dl (32.0-35.9); MEAN CELL VOLUME 88.6 fl (80-96); MEAN PLT VOLUME 7.6 fl (7.5-11.1); MONO % 4.5 % (3.8-10.2); NEUT % 72.1 % (42.8-82.8); PLATELET COUNT 244 10^3/uL (134-434); RBC 4.86 M/mm3 (4.00-5.60); WHITE BLOOD COUNT 5.9 K/mm3 (4.0-10.0)
[2023-09-29 21:07] LABS: POTASSIUM 4.1 mmol/L (3.5-5.1)
[2023-09-29 21:11] LABS: ALBUMIN 4.4 g/dl (3.4-5.0); BLOOD UREA NITROGEN 17.4 mg/dL (7-18)
[2023-09-29 21:14] LABS: CREATININE 1.1 mg/dL (0.55-1.3)
[2023-09-29 21:15] LABS: BILIRUBIN,TOTAL 0.3 mg/dL (0.2-1)
[2023-09-29 21:16] LABS: TOT PROT 8.7 g/dl (6.4-8.2)
[2023-09-30 00:26] VITALS: BP 133/68; PULSE 81; TEMP 98.8
== END 2023-09-30 00:35 | disposition home or self-care (01) ==
LOC: JER 18:45
DX: I10 Essential (primary) hypertension (principal); R00.2 Palpitations; R42 Dizziness and giddiness; R00.0 Tachycardia, unspecified; R10.13 Epigastric pain
CPT/HCPCS: 36415; 71046-TC-FY; 80053; 84484; 85025; 85379; 93005; 93010; 99285-25

== ENCOUNTER 2023-10-11 19:16 | Emergency (ER) | payer OTHER ==
[2023-10-11 19:21] VITALS: BP 144/82; PULSE 79; RESP 20; TEMP 98.3; BMI 21.2
== END 2023-10-11 23:40 | disposition home or self-care (01) ==
LOC: JER 19:16
DX: R03.0 Elevated blood-pressure reading, without diagnosis of hypertension (principal); F41.9 Anxiety disorder, unspecified; R42 Dizziness and giddiness; R07.9 Chest pain, unspecified
CPT/HCPCS: 36415; 84484; 93005; 93010; 99284-25

== ENCOUNTER 2023-11-12 19:21 | Emergency (ER) | payer OTHER ==
[2023-11-12 19:35] VITALS: BP 147/81; PULSE 66; RESP 16; TEMP 97.8; BMI 21.4
[2023-11-12] MEDS ORDERED: FAMOTIDINE 20 MG/50 ML IVPB 20 MG/50 ML MG IVPB ONE (19:57)
[2023-11-12] MEDS ORDERED: MAG HYDROX/AL HYDROX/SIMETH 30 ML UNIT-DOSE CUP ONE (19:57)
[2023-11-12] MEDS: FAMOTIDINE 20 MG/50 ML IVPB 20 MG/50 ML MG IVPB ONE (20:01)
[2023-11-12] MEDS: MAG HYDROX/AL HYDROX/SIMETH -MYLANTA- ORAL SUSPENSION PO ONE (20:01)
[2023-11-12] MEDS: SODIUM CHLORIDE 0.9% 500 ML INFUS.BAG IV ONE (20:01)
[2023-11-12 20:05] LABS: BASO % 0.9 % (0-2.0); EOS % 6.1 % (0-4.5); HEMATOCRIT 44.2 % (35.4-49); LYMPH % 56.2 % (8-40); MCH 30.2 pg (25.7-33.7); MEAN CELL VOLUME 88.6 fl (80-96); MEAN PLT VOLUME 7.7 fl (7.5-11.1); MONO % 7.8 % (3.8-10.2); PLATELET COUNT 201 10^3/uL (134-434); RBC 4.98 M/mm3 (4.00-5.60); RDW 13.1 % (11.9-15.9); WHITE BLOOD COUNT 4.3 K/mm3 (4.0-10.0)
[2023-11-12 20:26] LABS: POTASSIUM 3.8 mmol/L (3.5-5.1)
[2023-11-12 20:28] LABS: CALCIUM 9.5 mg/dL (8.5-10.1)
[2023-11-12 20:29] LABS: ALBUMIN 4.1 g/dl (3.4-5.0)
[2023-11-12 20:34] LABS: BILIRUBIN,TOTAL 0.7 mg/dL (0.2-1); TOT PROT 8.4 g/dl (6.4-8.2)
== END 2023-11-12 22:49 | disposition home or self-care (01) ==
LOC: JER 19:21
PROC: 3E033GC Introduction of Other Therapeutic Substance into Peripheral Vein, Percutaneous Approach (ICD-10-PCS; principal; 2023-11-12)
DX: R10.13 Epigastric pain (principal); K29.00 Acute gastritis without bleeding
CPT/HCPCS: 36415; 71046-TC-FY; 76705-TC; 80053; 83690; 84484; 85025; 93005; 93010; 99285-25

== ENCOUNTER 2024-01-24 18:10 | Emergency (ER) | payer OTHER ==
[2024-01-24 18:20] VITALS: BP 117/61; PULSE 66; RESP 18; TEMP 98; BMI 21.4
[2024-01-24] MEDS: DIPHTH,PERTUSS(ACELL),TET 0.5 ML DISP.SYRIN IM ONE (19:33)
[2024-01-24] MEDS ORDERED: DIPHTH,PERTUSS(ACELL),TET 0.5 ML DISP.SYRIN IM ONE (19:34)
[2024-01-24] MEDS ORDERED: CEPHALEXIN MONOHYDRATE 250 MG CAPSULE (FP) PO ONE (20:28)
[2024-01-24] MEDS ORDERED: CEPHALEXIN MONOHYDRATE 500 MG CAPSULE (UD) ONE (20:34)
[2024-01-24] MEDS: CEPHALEXIN MONOHYDRATE 500 MG CAPSULE (UD) PO ONE (20:35)
== END 2024-01-24 20:49 | disposition home or self-care (01) ==
LOC: JER 18:10 → JERFT 18:10
PROC: 3E0234Z Introduction of Serum, Toxoid and Vaccine into Muscle, Percutaneous Approach (ICD-10-PCS; principal; 2024-01-24)
DX: S61.211A Laceration without foreign body of left index finger without damage to nail, initial encounter (principal); W29.8XXA Contact with other powered hand tools and household machinery, initial encounter; Z23 Encounter for immunization
CPT/HCPCS: 73140-TC-LT-FY; 90715; 99283-25

== ENCOUNTER 2024-01-30 13:01 | Emergency (ER) | payer OTHER ==
[2024-01-30 13:25] VITALS: RESP 18; TEMP 97.9; BMI 21.4
[2024-01-30] MEDS ORDERED: ACETAMINOPHEN INJECTION 100 ML IVPB ONE (15:27)
[2024-01-30] MEDS: ACETAMINOPHEN 1000 MG/100 ML BAG IVPB ONE (15:34)
[2024-01-30 15:42] LABS: BASO % 0.5 % (0-2.0); EOS % 7.4 % (0-4.5); HEMATOCRIT 42.1 % (35.4-49); HEMOGLOBIN 14.1 GM/dL (11.7-16.9); LYMPH % 56.2 % (8-40); MCHC 33.5 g/dl (32.0-35.9); MEAN CELL VOLUME 89.4 fl (80-96); MEAN PLT VOLUME 7.6 fl (7.5-11.1); MONO % 7.1 % (3.8-10.2); NEUT % 28.8 % (42.8-82.8); PLATELET COUNT 197 10^3/uL (134-434); RBC 4.71 M/mm3 (4.00-5.60); WHITE BLOOD COUNT 3.7 K/mm3 (4.0-10.0)
[2024-01-30 16:01] LABS: POTASSIUM 4.4 mmol/L (3.5-5.1)
[2024-01-30 16:03] LABS: CALCIUM 9.6 mg/dL (8.5-10.1)
[2024-01-30 16:04] LABS: BLOOD UREA NITROGEN 10.5 mg/dL (7-18)
[2024-01-30 16:07] LABS: CREATININE 0.9 mg/dL (0.55-1.3)
[2024-01-30 16:08] LABS: TOT PROT 7.9 g/dl (6.4-8.2)
[2024-01-30 16:09] LABS: BILIRUBIN,TOTAL 0.6 mg/dL (0.2-1)
[2024-01-30 17:24] VITALS: BP 128/78; PULSE 59
== END 2024-01-30 17:30 | disposition home or self-care (01) ==
LOC: JERFT 13:01
PROC: 3E030NZ Introduction of Analgesics, Hypnotics, Sedatives into Peripheral Vein, Open Approach (ICD-10-PCS; principal; 2024-01-30)
DX: R07.89 Other chest pain (principal); R06.02 Shortness of breath; R51.9 Headache, unspecified; Y99.0 Civilian activity done for income or pay; Z20.822 Contact with and (suspected) exposure to COVID-19
CPT/HCPCS: 0241U-QW; 36415; 70450-TC; 71275-TC; 80053; 84484; 85025; 93005; 93010; 99285-25; J0131; Q9967

== ENCOUNTER 2024-02-21 14:12 | Observation (INO) | payer OTHER ==
[2024-02-21 14:26] VITALS: RESP 18
[2024-02-21 17:04] LABS: BASO % 0.4 % (0-2.0); EOS % 6.2 % (0-4.5); HEMATOCRIT 41.4 % (35.4-49); LYMPH % 41.8 % (8-40); MCH 30.1 pg (25.7-33.7); MCHC 33.7 g/dl (32.0-35.9); MEAN CELL VOLUME 89.3 fl (80-96); MEAN PLT VOLUME 7.9 fl (7.5-11.1); MONO % 7.5 % (3.8-10.2); NEUT % 44.1 % (42.8-82.8); PLATELET COUNT 197 10^3/uL (134-434); RBC 4.64 M/mm3 (4.00-5.60); RDW 12.9 % (11.9-15.9); WHITE BLOOD COUNT 4.3 K/mm3 (4.0-10.0)
[2024-02-21 17:08] LABS: POTASSIUM 4.4 mmol/L (3.5-5.1)
[2024-02-21 17:10] LABS: CALCIUM 9.3 mg/dL (8.5-10.1); MAGNESIUM 2.6 mg/dL (1.8-2.4)
[2024-02-21 17:11] LABS: BLOOD UREA NITROGEN 14.8 mg/dL (7-18); INR 1.3 (0.83-1.09); PROTHROMBIN TIME (PATIENT) 14.6 SEC (9.7-13.0)
[2024-02-21 17:13] LABS: CREATININE 0.8 mg/dL (0.55-1.3)
[2024-02-21 17:15] LABS: BILIRUBIN,TOTAL 0.5 mg/dL (0.2-1); TOT PROT 7.6 g/dl (6.4-8.2)
[2024-02-21] MEDS ORDERED: ACETAMINOPHEN INJECTION 100 ML IVPB ONE (18:24)
[2024-02-21] MEDS: ACETAMINOPHEN 1000 MG/100 ML BAG IVPB ONE (18:35)
[2024-02-21] MEDS ORDERED: NITROGLYCERIN 2% OINTMENT - 1GM PACKET TD ONE (20:04)
[2024-02-21] MEDS: NITROGLYCERIN 2% OINTMENT - 1GM PACKET TD ONE (20:10)
[2024-02-21] MEDS ORDERED: ASPIRIN 81 MG CHEWABLE TABLETS ONE (21:04)
[2024-02-21] MEDS: ASPIRIN 81 MG CHEWABLE TABLETS PO ONE (21:06)
[2024-02-21 23:46] VITALS: BMI 21.2
[2024-02-22] MEDS: MAG HYDROX/AL HYDROX/SIMETH 30 ML UNIT-DOSE CUP PO SCH (06:05)
[2024-02-22 07:41] LABS: ALBUMIN 3.6 g/dl (3.4-5.0); BLOOD UREA NITROGEN 18.4 mg/dL (7-18); CALCIUM 8.3 mg/dL (8.5-10.1); MAGNESIUM 2.2 mg/dL (1.8-2.4)
[2024-02-22 07:42] LABS: CREATININE 0.8 mg/dL (0.55-1.3)
[2024-02-22 07:44] LABS: BILIRUBIN,TOTAL 0.6 mg/dL (0.2-1); TOT PROT 6.7 g/dl (6.4-8.2)
[2024-02-22 07:45] LABS: PHOSPHOROUS 3.8 mg/dL (2.5-4.9)
[2024-02-22] MEDS: ESCITALOPRAM OXALATE 10 MG TABLET PO SCH (10:19)
[2024-02-22] MEDS: PANTOPRAZOLE 20 MG TABLET PO SCH (10:20)
[2024-02-22 10:38] VITALS: BP 115/84; PULSE 75; TEMP 98.6
[2024-02-22] MEDS: MAG HYDROX/AL HYDROX/SIMETH 30 ML UNIT-DOSE CUP PO ONE (12:27)
[2024-02-22 14:42] LABS: PHENCYCLIDINE,URINE NEGATIVE (NEGATIVE)
[2024-02-22 14:43] LABS: OPIATES, URI NEGATIVE (NEGATIVE)
[2024-02-22 14:44] LABS: COCAINE, UR NEGATIVE (NEGATIVE); METHADONE, UR NEGATIVE (NEGATIVE)
[2024-02-22 14:50] LABS: URINE AMPHETAMINES NEGATIVE (NEGATIVE); URINE BARBITURATES NEGATIVE (NEGATIVE); URINE BENZODIAZEPINES NEGATIVE (NEGATIVE)
[2024-02-22] MEDS ORDERED: NORTRIPTYLINE HCL 10 MG CAPSULE PO SCH (22:00)
== END 2024-02-22 13:41 | disposition home or self-care (01) ==
LOC: JER 14:12 → JERBED 19:54 → J4W 23:12
PROVIDERS: ADMIT Internal Medicine; ATTEND Internal Medicine
PROC: 3E033NZ Introduction of Analgesics, Hypnotics, Sedatives into Peripheral Vein, Percutaneous Approach (ICD-10-PCS; principal; 2024-02-21)
DX: R10.13 Epigastric pain (principal); R07.9 Chest pain, unspecified; R00.2 Palpitations; K21.9 Gastro-esophageal reflux disease without esophagitis; Z90.49 Acquired absence of other specified parts of digestive tract; F41.9 Anxiety disorder, unspecified; Z29.89 Encounter for other specified prophylactic measures; Z85.048 Personal history of other malignant neoplasm of rectum, rectosigmoid junction, and anus
CPT/HCPCS: 36415; 71046-TC-FY; 80053; 80061; 80307; 83690; 83735; 84100; 84439; 84443; 84484; 85025; 85610; 85730; 93005; 93010; 93306-TC; 99285-25; G0378; J0131

== ENCOUNTER 2024-07-02 21:03 | Emergency (ER) | payer OTHER ==
[2024-07-02 21:17] VITALS: BP 129/75; PULSE 69; RESP 20; TEMP 98.2; BMI 22.9
[2024-07-02] MEDS ORDERED: METOCLOPRAMIDE HCL INJECTION 10 MG/2 ML VIAL ONE (21:51)
[2024-07-02] MEDS ORDERED: ACETAMINOPHEN INJECTION 100 ML ONE (21:52)
[2024-07-02 22:01] LABS: BASO % 1.3 % (0-2.0); EOS % 10.1 % (0-4.5); HEMATOCRIT 43.1 % (35.4-49); HEMOGLOBIN 14.2 GM/dL (11.7-16.9); LYMPH % 49.3 % (8-40); MCH 29.3 pg (25.7-33.7); MEAN CELL VOLUME 88.7 fl (80-96); MEAN PLT VOLUME 7.3 fl (7.5-11.1); MONO % 8.5 % (3.8-10.2); NEUT % 30.8 % (42.8-82.8); PLATELET COUNT 214 10^3/uL (134-434); RBC 4.85 M/mm3 (4.00-5.60); RDW 13.1 % (11.9-15.9); WHITE BLOOD COUNT 3.7 K/mm3 (4.0-10.0)
[2024-07-02 22:02] LABS: URINE APPEARANCE CLEAR; URINE BILIRUBIN NEGATIVE (NEGATIVE); URINE COLOR YELLOW; URINE GLUCOSE (UA) NEGATIVE (NEGATIVE); URINE KETONE NEGATIVE (NEGATIVE); URINE LEUK ESTERASE NEGATIVE (NEGATIVE); URINE NITRITE NEGATIVE (NEGATIVE); URINE PROTEIN NEGATIVE (NEGATIVE); URINE UROBILINOGEN 0.2 mg/dL (0.2-1.0)
[2024-07-02] MEDS: LACTATED RINGERS SOLUTION 1000 ML INFUS.BAG IV ONE (22:11)
[2024-07-02] MEDS: ACETAMINOPHEN 1000 MG/100 ML BAG IVPB ONE (22:11)
[2024-07-02] MEDS: METOCLOPRAMIDE HCL INJECTION 10 MG/2 ML VIAL IVPB ONE (22:11)
[2024-07-02 22:25] LABS: POTASSIUM 3.9 mmol/L (3.5-5.1)
[2024-07-02 22:28] LABS: ALBUMIN 4.2 g/dl (3.4-5.0); BLOOD UREA NITROGEN 15.2 mg/dL (7-18); CALCIUM 9.3 mg/dL (8.5-10.1); MAGNESIUM 2.3 mg/dL (1.8-2.4)
[2024-07-02 22:31] LABS: CREATININE 0.9 mg/dL (0.55-1.3); PHOSPHOROUS 3.8 mg/dL (2.5-4.9)
[2024-07-02 22:33] LABS: BILIRUBIN,TOTAL 0.6 mg/dL (0.2-1); TOT PROT 7.8 g/dl (6.4-8.2)
== END 2024-07-02 23:50 | disposition home or self-care (01) ==
LOC: JER 21:03
PROC: 3E033NZ Introduction of Analgesics, Hypnotics, Sedatives into Peripheral Vein, Percutaneous Approach (ICD-10-PCS; principal; 2024-07-02)
PROC: 3E033GC Introduction of Other Therapeutic Substance into Peripheral Vein, Percutaneous Approach (ICD-10-PCS; 2024-07-02)
DX: G43.909 Migraine, unspecified, not intractable, without status migrainosus (principal); H53.149 Visual discomfort, unspecified; R11.0 Nausea; R19.7 Diarrhea, unspecified; R10.84 Generalized abdominal pain
CPT/HCPCS: 36415; 80053; 81003; 83690; 83735; 84100; 85025; 87086; 99284-25; J0131

== ENCOUNTER 2024-07-09 15:14 | Emergency (ER) | payer OTHER ==
[2024-07-09 15:23] VITALS: BMI 25.4
[2024-07-09] MEDS ORDERED: PROCHLORPERAZINE INJECTION 10 MG/2 ML VIAL ONE (16:33)
[2024-07-09] MEDS: SODIUM CHLORIDE 0.9% 500 ML INFUS.BAG IV ONE (17:09)
[2024-07-09] MEDS: PROCHLORPERAZINE INJECTION 10 MG/2 ML VIAL IVPB ONE (17:09)
[2024-07-09 17:16] LABS: BASO % 0.9 % (0-2.0); EOS % 5.4 % (0-4.5); HEMATOCRIT 40.4 % (35.4-49); HEMOGLOBIN 13.6 GM/dL (11.7-16.9); MCH 29.7 pg (25.7-33.7); MCHC 33.7 g/dl (32.0-35.9); MEAN CELL VOLUME 88.2 fl (80-96); MEAN PLT VOLUME 7.4 fl (7.5-11.1); MONO % 9.5 % (3.8-10.2); NEUT % 44.2 % (42.8-82.8); PLATELET COUNT 204 10^3/uL (134-434); RBC 4.58 M/mm3 (4.00-5.60); RDW 13.1 % (11.9-15.9); WHITE BLOOD COUNT 3.8 K/mm3 (4.0-10.0)
[2024-07-09 17:30] LABS: POTASSIUM 4.1 mmol/L (3.5-5.1)
[2024-07-09 17:31] LABS: CALCIUM 9.4 mg/dL (8.5-10.1)
[2024-07-09 17:32] LABS: BLOOD UREA NITROGEN 9.4 mg/dL (7-18)
[2024-07-09 17:35] LABS: CREATININE 0.9 mg/dL (0.55-1.3)
[2024-07-09 17:37] LABS: BILIRUBIN,TOTAL 0.4 mg/dL (0.2-1)
[2024-07-09 17:38] LABS: TOT PROT 7.4 g/dl (6.4-8.2)
[2024-07-09 18:46] VITALS: BP 125/74; PULSE 56; RESP 16; TEMP 98
== END 2024-07-09 19:02 | disposition home or self-care (01) ==
LOC: JER 15:14
PROC: 3E033GC Introduction of Other Therapeutic Substance into Peripheral Vein, Percutaneous Approach (ICD-10-PCS; principal; 2024-07-09)
PROC: 3E033GC Introduction of Other Therapeutic Substance into Peripheral Vein, Percutaneous Approach (ICD-10-PCS; 2024-07-09)
DX: G43.909 Migraine, unspecified, not intractable, without status migrainosus (principal); R42 Dizziness and giddiness; R68.84 Jaw pain
CPT/HCPCS: 36415; 80053; 84484; 85025; 85651; 86140; 86803; 93005; 93010; 99284-25

== ENCOUNTER 2024-08-08 15:22 | Emergency (ER) | payer OTHER ==
[2024-08-08 15:54] VITALS: BP 107/63; PULSE 67; RESP 16; TEMP 98; BMI 21.5
[2024-08-08] MEDS ORDERED: ACETAMINOPHEN 325 MG TABLET (FP) ONE (17:07)
[2024-08-08] MEDS: ACETAMINOPHEN 500 MG TABLET (FP) PO ONE (17:09)
== END 2024-08-08 18:42 | disposition home or self-care (01) ==
LOC: JER 15:22 → JERFT 15:22
DX: M79.661 Pain in right lower leg (principal); I83.11 Varicose veins of right lower extremity with inflammation; M79.671 Pain in right foot
CPT/HCPCS: 73630-TC-RT-FY; 93971-TC; 99284-25

== ENCOUNTER 2024-12-13 11:18 | Observation (INO) | payer OTHER ==
[2024-12-13] MEDS: ACETAMINOPHEN 500 MG TABLET (FP) PO ONE (12:31)
[2024-12-13] MEDS ORDERED: ACETAMINOPHEN 325 MG TABLET (FP) ONE (12:32)
[2024-12-13 13:16] LABS: BASO % 0.7 % (0-2.0); EOS % 3.6 % (0-4.5); HEMATOCRIT 42.5 % (35.4-49); HEMOGLOBIN 14.2 GM/dL (11.7-16.9); LYMPH % 43.2 % (8-40); MCH 29.4 pg (25.7-33.7); MCHC 33.4 g/dl (32.0-35.9); MEAN CELL VOLUME 88.2 fl (80-96); MEAN PLT VOLUME 7.9 fl (7.5-11.1); NEUT % 41.5 % (42.8-82.8); PLATELET COUNT 184 10^3/uL (134-434); RBC 4.82 M/mm3 (4.00-5.60); RDW 12.8 % (11.9-15.9); WHITE BLOOD COUNT 2.5 K/mm3 (4.0-10.0)
[2024-12-13 13:41] LABS: ALBUMIN 4.3 g/dl (3.4-5.0); BLOOD UREA NITROGEN 13.9 mg/dL (7-18); CALCIUM 9.5 mg/dL (8.5-10.1)
[2024-12-13 13:44] LABS: CREATININE 0.8 mg/dL (0.55-1.3)
[2024-12-13 13:46] LABS: BILIRUBIN,TOTAL 0.7 mg/dL (0.2-1); TOT PROT 7.9 g/dl (6.4-8.2)
[2024-12-13] MEDS ORDERED: PIPERACILLIN/TAZOB 4.5 GM 4.5 GM/100 ML BAG IVPB ONE (14:03)
[2024-12-13 14:05] LABS: URINE APPEARANCE CLEAR; URINE BILIRUBIN NEGATIVE (NEGATIVE); URINE COLOR YELLOW; URINE GLUCOSE (UA) NEGATIVE (NEGATIVE); URINE KETONE NEGATIVE (NEGATIVE); URINE LEUK ESTERASE NEGATIVE (NEGATIVE); URINE NITRITE NEGATIVE (NEGATIVE); URINE PROTEIN NEGATIVE (NEGATIVE); URINE UROBILINOGEN 0.2 mg/dL (0.2-1.0)
[2024-12-13] MEDS: PIPERACILLIN/TAZOB 4.5 GM 4.5 GM in DEXTROSE 5%-WATER 100 ML IVPB ONE (14:27)
[2024-12-13 14:34] LABS: HIV INTERPRETATION NEGATIVE (NEGATIVE)
[2024-12-13] MEDS: VANCOMYCIN HCL 1,500 MG in DEXTROSE 5%-WATER - 500 ML IVPB ONE (15:24)
[2024-12-13] MEDS: PIPERACILLIN/TAZOB 3.375 GM 3.375 GM in DEXTROSE 5%-WATER - 50 ML IVPB SCH (18:23)
[2024-12-13] MEDS: ACETAMINOPHEN 1000 MG/100 ML BAG IVPB ONE (20:55)
[2024-12-14 08:34] LABS: BASO % 0.6 % (0-2.0); EOS % 10.1 % (0-4.5); HEMOGLOBIN 13.7 GM/dL (11.7-16.9); LYMPH % 44.9 % (8-40); MCH 29.7 pg (25.7-33.7); MCHC 33.5 g/dl (32.0-35.9); MEAN CELL VOLUME 88.8 fl (80-96); MEAN PLT VOLUME 7.6 fl (7.5-11.1); MONO % 7.8 % (3.8-10.2); NEUT % 36.6 % (42.8-82.8); PLATELET COUNT 192 10^3/uL (134-434); RBC 4.62 M/mm3 (4.00-5.60); RDW 12.9 % (11.9-15.9); WHITE BLOOD COUNT 4.3 K/mm3 (4.0-10.0)
[2024-12-14 08:50] LABS: POTASSIUM 3.7 mmol/L (3.5-5.1)
[2024-12-14 08:59] LABS: CALCIUM 9.2 mg/dL (8.5-10.1)
[2024-12-14 09:00] LABS: ALBUMIN 3.8 g/dl (3.4-5.0)
[2024-12-14 09:03] LABS: CREATININE 0.9 mg/dL (0.55-1.3)
[2024-12-14 09:04] LABS: BILIRUBIN,TOTAL 0.6 mg/dL (0.2-1); TOT PROT 6.9 g/dl (6.4-8.2)
[2024-12-14] MEDS: ENOXAPARIN NA (PORCINE) 40 MG/0.4 ML DISP.SYRIN SQ SCH (10:19)
[2024-12-14] MEDS: LIDOCAINE 5% TOPICAL PATCH TP SCH (11:45)
[2024-12-14] MEDS ORDERED: ACETAMINOPHEN 325 MG TABLET (FP) PO PRN (14:32)
[2024-12-14] MEDS: LIDOCAINE PATCH REMOVAL MC SCH (21:46)
[2024-12-15 12:58] LABS: BASO % 0.9 % (0-2.0); EOS % 8.8 % (0-4.5); HEMATOCRIT 43.3 % (35.4-49); HEMOGLOBIN 14.4 GM/dL (11.7-16.9); MCH 29.6 pg (25.7-33.7); MCHC 33.3 g/dl (32.0-35.9); MEAN CELL VOLUME 88.9 fl (80-96); MEAN PLT VOLUME 7.9 fl (7.5-11.1); MONO % 7.5 % (3.8-10.2); NEUT % 31.8 % (42.8-82.8); PLATELET COUNT 194 10^3/uL (134-434); RBC 4.87 M/mm3 (4.00-5.60); WHITE BLOOD COUNT 3.4 K/mm3 (4.0-10.0)
[2024-12-15 14:36] VITALS: BMI 19.9
[2024-12-15] MEDS ORDERED: AMOX TR/POT CLAV 875MG/125MG TABLETS (FP) PO SCH (17:30)
[2024-12-16 01:04] VITALS: RESP 18
[2024-12-16 09:36] VITALS: BP 105/55; PULSE 66; TEMP 98
[2024-12-16 11:22] LABS: HEMATOCRIT 43.1 % (35.4-49); HEMOGLOBIN 13.9 GM/dL (11.7-16.9); MCHC 32.2 g/dl (32.0-35.9); MEAN CELL VOLUME 90.2 fl (80-96); MEAN PLT VOLUME 8.2 fl (7.5-11.1); PLATELET COUNT 192 10^3/uL (134-434); RBC 4.78 M/mm3 (4.00-5.60); RDW 12.9 % (11.9-15.9); WHITE BLOOD COUNT 3.5 K/mm3 (4.0-10.0)
[2024-12-16 11:46] LABS: LYMPH % 46.2 % (8-40); NEUT % 37.4 % (42.8-82.8)
[2024-12-16 11:47] LABS: BASO % 0.5 % (0-2.0); EOS % 9.3 % (0-4.5); MONO % 6.6 % (3.8-10.2)
== END 2024-12-16 12:10 | disposition home or self-care (01) ==
LOC: JER 11:18 → INTOOBSV 14:06 → UNDOADMOB 14:06 → JERBED 14:06 → J8W 17:08
PROVIDERS: ADMIT Student in an Organized Health Care Education/Training Program; ATTEND Nurse Practitioner Family
PROC: 3E023GC Introduction of Other Therapeutic Substance into Muscle, Percutaneous Approach (ICD-10-PCS; principal; 2024-12-13)
PROC: 3E03329 Introduction of Other Anti-infective into Peripheral Vein, Percutaneous Approach (ICD-10-PCS; 2024-12-13)
DX: D70.9 Neutropenia, unspecified (principal); R50.81 Fever presenting with conditions classified elsewhere; K21.9 Gastro-esophageal reflux disease without esophagitis; F41.1 Generalized anxiety disorder; Z85.048 Personal history of other malignant neoplasm of rectum, rectosigmoid junction, and anus; Z90.49 Acquired absence of other specified parts of digestive tract; G43.919 Migraine, unspecified, intractable, without status migrainosus; R42 Dizziness and giddiness; E78.5 Hyperlipidemia, unspecified; Z86.69 Personal history of other diseases of the nervous system and sense organs
CPT/HCPCS: 0241U-QW; 36415; 71046-TC-FY; 80053; 81003; 84484; 85025; 86803; 87040; 87086; 87389; 93005; 93010; 99285-25; G0378

== ENCOUNTER 2024-12-21 18:50 | Observation (INO) | payer OTHER ==
[2024-12-21 21:51] LABS: ABSOLUTE IMMATURE GRANULOCYTES 0.01 x10^3/uL (0.0-0.031); BASOPHILS # 0.04 x10^3/uL (0.01-0.08); EOSINOPHIL % 4.6 % (0.8-7.0); EOSINOPHILS # 0.19 x10^3/uL (0.04-0.54); HEMATOCRIT 44.3 % (40.1-51.0); HEMOGLOBIN 14.5 g/dL (13.7-17.5); MCHC 32.7 g/dl (32.3-36.5); MEAN CELL VOLUME 88.6 fl (79.0-92.2); MEAN PLT VOLUME 9.9 fl (9.4-12.4); MONOCYTE # 0.33 x10^3/uL (0.30-0.82); PLATELET COUNT 213 x10^3/uL (163-337); RDW 12.1 % (12.2-16.1)
[2024-12-21 21:55] LABS: INR 1.44 (0.83-1.09); PROTHROMBIN TIME (PATIENT) 15.8 SEC (9.7-13.0)
[2024-12-21 21:58] LABS: ACTIVATED PTT 29.5 SECONDS (25.2-36.5)
[2024-12-21 22:04] LABS: POTASSIUM 4.5 mmol/L (3.5-5.1)
[2024-12-21 22:06] LABS: ALBUMIN 3.9 g/dl (3.4-5.0); CALCIUM 9.1 mg/dL (8.5-10.1)
[2024-12-21 22:07] LABS: BLOOD UREA NITROGEN 10.7 mg/dL (7-18); MAGNESIUM 2.6 mg/dL (1.8-2.4)
[2024-12-21 22:09] LABS: CREATININE 0.7 mg/dL (0.55-1.3)
[2024-12-21 22:11] LABS: BILIRUBIN,TOTAL 0.5 mg/dL (0.2-1); TOT PROT 7.7 g/dl (6.4-8.2)
[2024-12-22 06:38] LABS: POTASSIUM 4.1 mmol/L (3.5-5.1)
[2024-12-22 06:40] LABS: CALCIUM 8.8 mg/dL (8.5-10.1)
[2024-12-22 06:41] LABS: ALBUMIN 3.7 g/dl (3.4-5.0); BLOOD UREA NITROGEN 9.5 mg/dL (7-18)
[2024-12-22 06:44] LABS: CREATININE 0.8 mg/dL (0.55-1.3)
[2024-12-22 06:45] LABS: BILIRUBIN,TOTAL 0.6 mg/dL (0.2-1)
[2024-12-22 07:45] LABS: ABSOLUTE IMMATURE GRANULOCYTES 0.01 x10^3/uL (0.0-0.031); BASOPHILS # 0.03 x10^3/uL (0.01-0.08); EOSINOPHIL % 6.6 % (0.8-7.0); EOSINOPHILS # 0.28 x10^3/uL (0.04-0.54); HEMATOCRIT 43.4 % (40.1-51.0); MCHC 32.3 g/dl (32.3-36.5); MEAN CELL VOLUME 88.8 fl (79.0-92.2); MEAN PLT VOLUME 10.2 fl (9.4-12.4); MONOCYTE # 0.29 x10^3/uL (0.30-0.82); MONOCYTE % 6.8 % (5.3-12.2); PLATELET COUNT 210 x10^3/uL (163-337)
[2024-12-22] MEDS: PANTOPRAZOLE SODIUM 40 MG VIAL IVPUSH SCH (09:22)
[2024-12-22] MEDS: POLYETHYLENE GLYCOL (HEALTHYLAX) 3350 17 GM PACKET PO SCH (21:18)
[2024-12-23] MEDS: ACETAMINOPHEN 325 MG TABLET (FP) PO ONE (00:25)
[2024-12-23] MEDS: LORazepam 0.5 MG TABLET PO ONE (05:29)
[2024-12-23 07:40] LABS: IRON SERUM 52 ug/dL (50-175)
[2024-12-23 07:42] LABS: TOTAL IRON BINDING CAPACITY 316 ug/dL (250-450)
[2024-12-23] MEDS: IRON SUCROSE INJECTION 200 MG in SODIUM CHLORIDE 100 ML IVPB ONE (21:33)
[2024-12-24] MEDS: ESCITALOPRAM OXALATE 10 MG TABLET PO SCH (09:21)
[2024-12-24 10:15] VITALS: BMI 20.4
[2024-12-24] MEDS ORDERED: BISACODYL 5 MG TABLET.DR (FP) PO ONE (16:00)
[2024-12-24] MEDS: PEG 3350/NA SULF BICARB CL/KCL 4000 ML SOLN.RECON PO ONE (17:25)
[2024-12-24] MEDS: BISACODYL 5 MG TABLET.DR (FP) PO ONE (17:25)
[2024-12-25 07:51] LABS: INR 1.52 (0.83-1.09); PROTHROMBIN TIME (PATIENT) 16.6 SEC (9.7-13.0)
[2024-12-25 07:59] LABS: POTASSIUM 3.7 mmol/L (3.5-5.1)
[2024-12-25 08:09] LABS: BLOOD UREA NITROGEN 12.2 mg/dL (7-18); CALCIUM 9.1 mg/dL (8.5-10.1)
[2024-12-25 08:12] LABS: CREATININE 0.9 mg/dL (0.55-1.3)
[2024-12-25 08:14] LABS: TOT PROT 7.1 g/dl (6.4-8.2)
[2024-12-25 09:56] LABS: ABSOLUTE IMMATURE GRANULOCYTES 0.01 x10^3/uL (0.0-0.031); BASOPHILS # 0.03 x10^3/uL (0.01-0.08); EOSINOPHIL % 8.4 % (0.8-7.0); HEMOGLOBIN 14.6 g/dL (13.7-17.5); MEAN CELL VOLUME 89.8 fl (79.0-92.2); MONOCYTE # 0.37 x10^3/uL (0.30-0.82); MONOCYTE % 7.8 % (5.3-12.2); PLATELET COUNT 211 x10^3/uL (163-337); RDW 11.8 % (12.2-16.1)
[2024-12-25 18:24] VITALS: BP 125/76; PULSE 64; RESP 16; TEMP 98.1
== END 2024-12-25 18:56 | disposition home or self-care (01) ==
LOC: JER 18:50 → JERBED 12-22 04:04 → J4W 12-22 06:07
PROVIDERS: ADMIT Family Medicine; ATTEND Family Medicine
PROC: 3E033GC Introduction of Other Therapeutic Substance into Peripheral Vein, Percutaneous Approach (ICD-10-PCS; 2024-12-22)
PROC: 0DBK8ZX Excision of Ascending Colon, Via Natural or Artificial Opening Endoscopic, Diagnostic (ICD-10-PCS; 2024-12-25)
PROC: 0DBP8ZX Excision of Rectum, Via Natural or Artificial Opening Endoscopic, Diagnostic (ICD-10-PCS; principal; 2024-12-25 09:15)
DX: R55 Syncope and collapse (principal); F41.8 Other specified anxiety disorders; K62.89 Other specified diseases of anus and rectum; K59.02 Outlet dysfunction constipation; I10 Essential (primary) hypertension; G89.29 Other chronic pain; G43.909 Migraine, unspecified, not intractable, without status migrainosus; K21.9 Gastro-esophageal reflux disease without esophagitis; Z85.048 Personal history of other malignant neoplasm of rectum, rectosigmoid junction, and anus; Z86.16 Personal history of COVID-19; Z86.0100 Personal history of colon polyps, unspecified; Z90.49 Acquired absence of other specified parts of digestive tract
CPT/HCPCS: 36415; 71045-TC-FY; 74177-TC; 80053; 82272; 82378; 82728; 83540; 83550; 83605; 83690; 83735; 84443; 84484; 85025; 85610; 85730; 86140; 86850; 86900; 86901; 88305-TC; 93005; 93010; 93970-TC; 96365; 96375; 97116-GP; 97161-GP; 99285-25; G0378; J1756; Q9967

== ENCOUNTER 2024-12-26 08:22 | Emergency (ER) | payer OTHER ==
[2024-12-26 08:38] VITALS: BP 124/69; PULSE 83; RESP 20; TEMP 98; BMI 21.1
[2024-12-26 09:40] LABS: ABSOLUTE IMMATURE GRANULOCYTES 0.01 x10^3/uL (0.0-0.031); BASOPHILS # 0.02 x10^3/uL (0.01-0.08); EOSINOPHIL % 3.4 % (0.8-7.0); EOSINOPHILS # 0.15 x10^3/uL (0.04-0.54); HEMATOCRIT 43.2 % (40.1-51.0); HEMOGLOBIN 14.4 g/dL (13.7-17.5); MCHC 33.3 g/dl (32.3-36.5); MEAN CELL VOLUME 88.9 fl (79.0-92.2); MEAN PLT VOLUME 9.6 fl (9.4-12.4); MONOCYTE # 0.25 x10^3/uL (0.30-0.82); MONOCYTE % 5.7 % (5.3-12.2); PLATELET COUNT # 205 x10^3/uL (163-337); RDW 11.9 % (12.2-16.1)
[2024-12-26] MEDS: LACTATED RINGERS SOLUTION 1000 ML INFUS.BAG IV ONE (09:52)
[2024-12-26 10:06] LABS: POTASSIUM 3.9 mmol/L (3.5-5.1)
[2024-12-26 10:08] LABS: BLOOD UREA NITROGEN 11.1 mg/dL (7-18); CALCIUM 9.3 mg/dL (8.5-10.1); MAGNESIUM 2.4 mg/dL (1.8-2.4)
[2024-12-26 10:11] LABS: CREATININE 0.9 mg/dL (0.55-1.3)
[2024-12-26 10:13] LABS: BILIRUBIN,TOTAL 0.7 mg/dL (0.2-1); TOT PROT 7.7 g/dl (6.4-8.2)
[2024-12-26] MEDS ORDERED: LORazepam 1 MG TABLET ONE (11:27)
[2024-12-26] MEDS: LORazepam 2 MG TABLET PO ONE (11:35)
== END 2024-12-26 12:30 | disposition home or self-care (01) ==
LOC: JER 08:22
DX: F41.9 Anxiety disorder, unspecified (principal)
CPT/HCPCS: 0241U-QW; 36415; 74177-TC; 80053; 82962; 83735; 84443; 84484; 85025; 93005; 93010; 99285-25

== ENCOUNTER 2025-03-10 20:21 | Emergency (ER) | payer OTHER ==
[2025-03-10 20:29] VITALS: BP 125/71; PULSE 68; RESP 17; TEMP 98; BMI 21.4
[2025-03-10] MEDS ORDERED: KETOROLAC TROMETHAMINE 30 MG/1 ML VIAL ONE (21:38)
[2025-03-10] MEDS: KETOROLAC TROMETHAMINE 30 MG/1 ML VIAL IM ONE (21:45)
== END 2025-03-10 22:27 | disposition home or self-care (01) ==
LOC: JERFT 20:21
PROC: 3E0233Z Introduction of Anti-inflammatory into Muscle, Percutaneous Approach (ICD-10-PCS; principal; 2025-03-10)
DX: S22.41XA Multiple fractures of ribs, right side, initial encounter for closed fracture (principal); W01.0XXA Fall on same level from slipping, tripping and stumbling without subsequent striking against object, initial encounter; Y99.0 Civilian activity done for income or pay
CPT/HCPCS: 99284-25

== ENCOUNTER 2025-04-23 18:03 | Emergency (ER) | payer OTHER ==
[2025-04-23 18:14] VITALS: BP 123/78; PULSE 69; RESP 20; TEMP 98.2; BMI 21.4
[2025-04-23] MEDS ORDERED: KETOROLAC TROMETHAMINE 30 MG/1 ML VIAL ONE (19:33)
[2025-04-23] MEDS: KETOROLAC TROMETHAMINE 30 MG/1 ML VIAL IM ONE (19:38)
== END 2025-04-23 21:25 | disposition home or self-care (01) ==
LOC: JER 18:03
PROC: 3E0233Z Introduction of Anti-inflammatory into Muscle, Percutaneous Approach (ICD-10-PCS; principal; 2025-04-23)
DX: S20.219A Contusion of unspecified front wall of thorax, initial encounter (principal); W22.8XXA Striking against or struck by other objects, initial encounter; Y99.0 Civilian activity done for income or pay
CPT/HCPCS: 71046-TC-FY; 93005; 93010; 99284-25